=== PATIENT | female | born 1990 | race Caucasian/White ===

== ENCOUNTER 2019-05-25 19:56 | Emergency (ER) | payer SELFPAY ==
[2019-05-25 19:58] VITALS: BP 143/88; PULSE 84; RESP 16; TEMP 36.6; O2SAT 95; BMI 35.1
--- NOTE | 2019-05-25 20:11 | ED.VISSUMM ---
- ER Visit Summary Date of Service: 05/25/19 Chief Complaint: [Back and left leg pain] History of Present Illness: The patient is a 28 F [presents to the emergency department with complaint of pain that started in her low back about a week and a half ago. Patient and subsequently developed pain that radiated into her buttock and down the back of her left leg all the way down to the foot. Patient has intermittent numbness and tingling associated with it. Oftentimes it is difficult to find a position of comfort however she gets some relief with lying with some pillows between her legs and having the left hip abducted. Patient denies any falls or trauma. She denies any recent illness other than she is had all bit of a head cold and 4 days ago had a fever up to 102. She denies any urinary symptoms. She denies any IV drug use. She has no history of chronic back pain. Patient does have history of thyroid cancer and cervical cancer and has been in remission. She denies any weakness in the extremity. She denies any saddle anesthesia.] Physical Examination: [HEENT-PERRLA, EOMI. Cranial nerves II through XII grossly intact. TMs clear. Mucous membranes moist. No adenopathy. Cardiovascular-regular rate and rhythm without murmur or ectopy Lungs-clear to auscultation, chest wall stable without crepitus or subcu emphysema Abdomen-normoactive bowel sounds, soft, nontender, no rebound or rigidity, no peritoneal signs. Back exam-patient has mild discomfort over the left lumbar paraspinal musculature. No real tenderness in the midline of the thoracic or lumbar spine. Patient has negative straight leg raises bilaterally. Deep tendon reflexes are plus 2 out of 4 bilaterally at the patella and Achilles. Patient has normal L5 extension bilaterally. Patient has normal sensation to light touch. Extremities-intact ?4, normal range of motion, normal pulses, atraumatic] Test Results: [None indicated] Emergency Department Course and Treatment: [She was medicated with 1 [place] as well as Naprosyn and Flexeril.] Treatment Plan: [She will be given a perception for [place], Naprosyn, and Flexeril. Patient advised to follow-up with primary care physician convalescent sitter for no doc within the next 3 to 5 days. Patient understands if her symptoms do not improve or worsen may require further evaluation with possibly MRI.] Disposition: [Discharged home in stable condition.] Impression: [Lumbar radiculopathy/sciatica] This note was generated with [employer] dictation software. It may contain incorrect words, spelling, and punctuation that were not noted in review of the chart prior to signing ED Disposition - Plan for ED Patient: Referrals: Care Physician,No Primary [Primary Care Provider] -
--- NOTE | 2019-05-25 20:14 | ED.DEP ---
ED Disposition - Plan for ED Patient: Instructions: BACK PAIN w/ SCIATICA Prescriptions: cycloBENZAPRine HCl [Flexeril] 10 mg PO TID PRN #20 tab PRN Reason: Muscle Spasm Prescription Printed Naproxen [Naprosyn] 500 mg PO BID PRN #20 tab Prescription Printed Hydrocodone Bitart/Apap 5-325 [[place] 5MG-325MG] 1 tab PO Q4H PRN PRN 2 Days #20 tab PRN Reason: Pain Prescription Printed Referrals: Care Physician,No Primary [Primary Care Provider] - Isidro Caldwell MD [STAFF PHYSICIAN] - 3-5 Days
[2019-05-25] MEDS: Naproxen 500 MG Tablet PO (20:20)
[2019-05-25] MEDS: HYDROcodone Bitartrate/Apap 5/325 Tablet PO (20:20)
[2019-05-25] MEDS: cycloBENZAPRine HCl 10 MG Tablet PO (20:20)
[2019-05-25 20:34] VITALS: BP 129/75; PULSE 71; RESP 18; O2SAT 99
--- NOTE | 2019-05-25 20:35 | ED.RN ---
THIS NURSE REVIEWED D/C INSTRUCTIONS WITH PT. PT VERBALIZED UNDERSTANDING OF INSTRUCTIONS. PT DENIES FURTHER NEED OR QUESTIONS AT THIS TIME. PT AMBULATES FROM ROOM ON OWN WITHOUT ASSISTANCE FROM STAFF
== END 2019-05-25 20:38 | disposition home or self-care (01) ==
LOC: ED 20:19
PROVIDERS: Emergency Provider Emergency Medicine
DX: M54.16 Radiculopathy, lumbar region (principal); M54.30 Sciatica, unspecified side; Z85.41 Personal history of malignant neoplasm of cervix uteri; Z85.850 Personal history of malignant neoplasm of thyroid
CPT/HCPCS: 99282

== ENCOUNTER 2019-07-22 13:26 | Emergency (ER) | payer SELFPAY ==
[2019-07-22 13:27] VITALS: BP 114/88; PULSE 111; RESP 20; TEMP 36.6; O2SAT 100; BMI 32.8
--- NOTE | 2019-07-22 13:53 | ED.VIS.GEN ---
History of Present Illness Chief Complaint: Cough Informant: Patient Narrative: Patient presents with 4 to 5-day history of cough congestion fevers myalgias, the fevers have significantly improved, she still has upper airway congestion. She smoked 3 packs of cigarettes a day until a few days ago, she is down to 1-1/2 packs of cigarettes a day. She has no fevers in the past 2 days. She has upper airway congestion and rhinorrhea and she has a sore throat. Past Medical History - Allergies and Home Meds Allergies/Adverse Reactions: Allergies hydromorphone [From Dilaudid] Allergy (Verified 07/22/19 13:29) Hives latex Allergy (Verified 07/22/19 13:29) Hives ZEST Allergy (Uncoded 07/22/19 13:29) Hives Primary Care Physician: Care Physician,No Primary [Primary Care Provider] - Past Medical History: None Smoking Status: Current every day smoker Review of Systems General: Reports: Fever Eyes: Denies: Visual changes - bilaterally ENT: Reports: Bilateral ear pain Cardiovascular: Denies: Chest pain, Palpitations Respiratory: Reports: Cough. Denies: Sputum Gastrointestinal: Denies: Abdominal pain, Nausea Musculoskeletal: Reports: Myalgias Skin: Denies: Rash Neurological: Denies: Headache, Weakness Endocrine: Denies: Polyuria Hematologic: Denies: Easy bruising Allergy: Denies: Uticaria Physical Exam Vital Signs/Narrative: Vital Signs Temp Pulse Resp BP Pulse Ox 07/22/19 13:27 98 F 111 H 20 H 114/88 H 100 General: Well nourished, Well developed Eyes: Perrl, EOMI ENT: Moist mucous membranes, - - Upper airway congestion, rhinorrhea, she has bilateral TM erythema but no bulging. Neck: Supple Cardiovascular: Regular rhythm, No murmurs Respiratory: No distress, - - Speaking full sentences, she has mild and expiratory wheezing and quite a bit of bronchial breath sounds. Abdomen: Soft, Nontender Back: Nontender Extremities: No edema Skin: Normal color Neurological: Alert, Normal Strength, Normal Sensation Psychological: Normal affect Diagnostic/Tx/Re-eval - Medical Decision Making Patient likely has bronchitis, she does not meet criteria for antibiotic treatment, she may have had influenza or an upper respiratory infection however this is also improving and does not meet criteria for Tamiflu. She appears well is nontoxic we will give her an inhaler for home and NSAIDs as well as decongestants. If she worsens she needs to return. ED Disposition - Plan for ED Patient: Disposition: Home or Assisted Living Instructions: BRONCHITIS with Wheezing (Adult) Prescriptions: Guaifenesin [Mucinex] 1,200 mg PO BID #10 tab.er.12h Transmission Status: Pending to [id number] Naproxen [Naprosyn] 500 mg PO BID PRN #20 tab Transmission Status: Pending to [id number] Albuterol Sulfate [Proventil Hfa] 6.7 gm IH Q6H PRN PRN #1 [id number] PRN Reason: Wheezing Transmission Status: Pending to [id number] Referrals: Care Physician,No Primary [Primary Care Provider] - 3-5 Days
[2019-07-22 13:58] VITALS: PULSE 82; RESP 24; O2SAT 99
[2019-07-22] MEDS: Ipratropium/Albuterol Sulfate 3 ML AMPUL.NEB INHALATION (13:58)
[2019-07-22] MEDS: Ketorolac 30 MG/ML Syringe IM (14:00)
[2019-07-22 14:41] VITALS: PULSE 92; RESP 16; O2SAT 97
== END 2019-07-22 14:41 | disposition home or self-care (01) ==
PROVIDERS: Emergency Provider Emergency Medicine
DX: J40 Bronchitis, not specified as acute or chronic (principal); R06.2 Wheezing; F17.200 Nicotine dependence, unspecified, uncomplicated; Z88.5 Allergy status to narcotic agent; Z91.040 Latex allergy status
CPT/HCPCS: 94640; 96372; 99283

== ENCOUNTER 2019-10-21 13:39 | Emergency (ER) | payer SELFPAY ==
[2019-10-21 13:40] VITALS: BP 125/94; PULSE 72; RESP 18; O2SAT 95
[2019-10-21 13:41] VITALS: BP 125/94; PULSE 80; RESP 17; TEMP 37.1; O2SAT 98; BMI 32.8
--- NOTE | 2019-10-21 14:18 | ED.VISSUMM ---
- ER Visit Summary Date of Service: 10/21/19 Chief Complaint: Right upper eyelid pain History of Present Illness: The patient is a 29 F with no primary care physician. She wears glasses that she is gotten from [employer]. She does not wear contacts. She reports that she has pain to her right upper eyelid that began 3 days ago. Is gradually gotten worse. It is a sharp pain is 10 out of 10 at worst and 7-10 currently. Is worsened by blinking and touching it. Is relieved by warm compresses. She denies any pain to her eye itself. No foreign body sensation. No discharge or crusting. No photophobia. No change in her vision. She denies any possible injury. On review of systems patient does appear alert that she has had some congestion, but nothing unusual for her. She denies any other complaints. Physical Examination: Vitals: Stable. Afebrile. General: Well-nourished and well-developed. Head: Normocephalic atraumatic. Right eye: Moderate soft tissue swelling that is worst over the margin of her right upper eyelid in the middle third. This does extend both superiorly and laterally. There is no erythema. No localized stye. It is moderately tender to palpation. There is no involvement of the globe itself. There is no conjunctival injection. Extraocular motions are intact without pain. Neck: Supple, no lymphadenopathy. No JVD. Nontender. Cardiovascular: Regular rate and rhythm. No murmurs. Respiratory: No respiratory distress. Clear to auscultation bilaterally. Abdominal: Soft, nontender, nondistended, normal bowel sounds. No guarding, rebound, or peritoneal signs. Back: Nontender. Extremities: Nontender, no edema. Skin: Normal color, no rash. Neurologic: Alert and oriented ?3. Cranial nerves II through XII are intact. Normal strength and sensation. Psych: Normal affect. Emergency Department Course and Treatment: I had a prolonged discussion the patient that I suspect that this is actually a stye that has not organized into a single spot yet. She had bacitracin placed. An [facility] report was obtained which shows she is only had one prescription for opiates in the past year. She is treated with naproxen and [place]. Treatment Plan: Patient will be discharged with instructions to do warm compresses to her eye 4 times a day. Stop wearing eye make-up. Use bacitracin ointment 4 times a day. She is given us prescription for 10 [place]. Instructed to follow-up with Dr. Yazmin Jeff in 1 week if not improving. Return to the emergency department for any worsening symptoms. Disposition: To home in improved and stable condition. Impression: 1. Hordeolum right upper eyelid. This note was generated with [employer] dictation software. It may contain incorrect words, spelling, and punctuation that were not noted in review of the chart prior to signing ED Disposition - Plan for ED Patient: Instructions: ED Hordeolum Prescriptions: Naproxen [Naprosyn] 500 mg PO BID #14 tablet Hydrocodone Bitart/Apap 5-325 [[place] 5MG-325MG] 1 tablet PO Q4H PRN PRN 2 Days #10 tablet PRN Reason: Pain Referrals: Megha Jeff MD [STAFF PHYSICIAN] - 1 Week if not improving
[2019-10-21] MEDS: HYDROcodone Bitartrate/Apap 5/325 Tablet PO (14:31)
[2019-10-21] MEDS: Naproxen 250 MG Tablet 500 MG PO (14:31)
== END 2019-10-21 14:51 | disposition home or self-care (01) ==
LOC: ED 14:42
PROVIDERS: Emergency Provider Emergency Medicine
DX: H00.011 Hordeolum externum right upper eyelid (principal); E03.9 Hypothyroidism, unspecified; F17.210 Nicotine dependence, cigarettes, uncomplicated
CPT/HCPCS: 99283

== ENCOUNTER 2019-11-22 17:06 | Emergency (ER) | payer MEDICAID, SELFPAY ==
[2019-11-22 17:06] VITALS: BP 151/96; PULSE 91; RESP 18; TEMP 36.6; O2SAT 99; BMI 32.5
[2019-11-22] MEDS: Lidocaine/Epi/Tetracaine 50 ML 1 APPLIC TOPICAL (17:28)
--- NOTE | 2019-11-22 18:04 | ED.VIS.GEN ---
History of Present Illness Chief Complaint: Abscess Informant: Patient Onset: Weeks - 1 week Context: Gradual Onset Current Severity: Mild Maximum Severity: Moderate Narrative: Patient presents secondary to boil on her abdomen. She states she first noted a week ago. She did open and get some drainage out of it. For the past week she is had increasing pain. She is not been able to get any further drainage. She denies fever or chills. - Past Medical History (1) Hypothyroid Status: Chronic (2) Asthma Status: Chronic (3) Bipolar disorder Status: Chronic Past Medical History - Allergies and Home Meds Allergies/Adverse Reactions: Allergies hydromorphone [From Dilaudid] Allergy (Verified 11/22/19 17:08) Hives latex Allergy (Verified 11/22/19 17:08) Hives ZEST Allergy (Uncoded 11/22/19 17:08) Hives Primary Care Physician: Care Physician,No Primary [Primary Care Provider] - Prior records reviewed: Yes Lives: Spouse/ Significant Other Smoking Status: Current every day smoker Review of Systems Eyes: Denies: Visual changes - bilaterally ENT: Denies: Bilateral ear pain Cardiovascular: Denies: Chest pain Respiratory: Denies: Dyspnea, Cough Gastrointestinal: Reports: Abdominal pain Musculoskeletal: Denies: Extremity Pain Skin: Reports: Abscess Neurological: Denies: Headache Hematologic: Denies: Easy bruising, Easy bleeding Allergy: Denies: Uticaria Physical Exam Vital Signs/Narrative: Vital Signs Temp Pulse Resp BP Pulse Ox 11/22/19 17:06 97.8 F 91 18 151/96 H 99 Inital Vital Signs reviewed: Yes General: Well nourished, Well developed Head: Normocephalic ENT: Moist mucous membranes Neck: Supple Cardiovascular: Regular rate, Regular rhythm Respiratory: No distress, CTA bilaterally Abdomen: Soft, Nontender Skin: - - 1 cm diameter abscess to the right anterior abdominal wall. No surrounding cellulitis. Neurological: Alert, Oriented x3 Psychological: Normal affect Diagnostic/Tx/Re-eval - Medical Decision Making Let was applied to the wound. Following this 1/2 cc 1% lidocaine was infused. Stab incision is made with #11 blade. Wound is opened. Minimal drainage noted. Wound is dressed and wound care is discussed. I do not feel she needs oral antibiotics at this time. ED Disposition - Plan for ED Patient: Disposition: Home or Assisted Living Diagnosis: Cutaneous abscess Instructions: ED Abscess Incision And Drainage Referrals: Rodrigo Betancourt DO [STAFF PHYSICIAN] - As Needed
== END 2019-11-22 18:11 | disposition home or self-care (01) ==
PROVIDERS: Emergency Provider Emergency Medicine
DX: L02.211 Cutaneous abscess of abdominal wall (principal); E03.9 Hypothyroidism, unspecified; F31.9 Bipolar disorder, unspecified; J45.909 Unspecified asthma, uncomplicated; Z88.5 Allergy status to narcotic agent; Z91.040 Latex allergy status; F17.200 Nicotine dependence, unspecified, uncomplicated
CPT/HCPCS: 10060; 99282

== ENCOUNTER → 2020-04-07 09:15 | Outpatient (CLI) | payer MEDICAID, SELFPAY ==
[2020-04-07 10:10] LABS: Absolute Lymphocyte Count 3.17 X10^3/uL (0.83-4.51); Absolute Neutrophil Count 4.4 X10^3/uL (2.0-7.7); Basophil# 0.06 X10^3/uL; Basophil% 0.7 % (0-1); Eosinophils% 3.5 % (0-5); Hematocrit 44.9 % (37-47); Hemoglobin 14.6 g/dL (12.0-15.0); Lymphocyte # 3.17 X10^3/ul (4.0); Lymphocyte % 36.8 % (19-41); Mean Corp Hgb Conc 32.5 g/dL (32-36); Mean Corpuscular Hgb 31.7 pg (27.0-32.0); Mean Corpuscular Volume 97.6 fL (81-99); Mean Platelet Vol. 9.4 fl (6.2-12.0); Monocyte% 8.1 % (0-10); NRBC Flagged by Analyzer 0 % (0-5); Neutrophil # 4.35 X10^3/uL (2.7-7.7); Neutrophil % 50.4 % (47-70); Platelet Count 327 K/mm3 (150-450); RBC Distribution Width SD 46.4 fl (35.1-43.9); White Blood Count 8.6 K/mm3 (4.4-11.0)
[2020-04-07 10:45] LABS: Vitamin D,25 Hydroxy 18.2 ng/mL
[2020-04-07 12:11] LABS: ALB/GLOB Ratio 0.9 RATIO (0.9-2.4); AST(SGOT) 34 U/L (15-37); Alanine Aminotransfer ALT/SGPT 20 U/L (13-56); Albumin, Serum 3.8 g/dL (3.2-5.0); Alkaline Phosphatase 62 U/L (45-117); Anion Gap 6 (5-15); BUN 11 mg/dL (7-18); BUN/Creat Ratio 10.5 RATIO (10-20); Calcium,Total 8.8 mg/dL (8.5-10.1); Chloride 104 mmol/L (98-107); Cholesterol 188 mg/dL (200); Creatinine, Serum 1.05 mg/dL (0.55-1.02); EST Glomerular Filtration Rate 65 mL/min (>60); Est Glom Filt Rate - Afr Amer 78 mL/min (>60); Free T3 0.7 pg/mL (2.18-3.98); Globulin 4.1 g/dL (2.2-4.2); Glucose 76 mg/dL (74-106); High Density Lipoprotein 51 mg/dL; Potassium 3.7 mmol/L (3.5-5.1); Protein, Total 7.9 g/dL (6.4-8.2); Sodium Level 139 mmol/L (136-145); T4 Free Direct 0.35 ng/dL (0.76-1.46); Triglycerides 102 mg/dL; Very Low Density Lipoprotein 20 mg/dL (5-40)
== END ==
DX: E03.9 Hypothyroidism, unspecified (principal); F41.9 Anxiety disorder, unspecified
CPT/HCPCS: 36415; 80053; 80061; 82306; 84439; 84443; 84481; 85025

== ENCOUNTER 2022-03-23 04:39 | Emergency (ER) | payer MEDICAID, SELFPAY ==
[2022-03-23 04:39] VITALS: BP 156/94; PULSE 68; RESP 16; TEMP 36.6; O2SAT 100; BMI 32.8
--- NOTE | 2022-03-23 04:46 | EDS_ITS ---
HPI History of Present Illness Chief Complaint: Dental Informant: patient Onset/Context/Timing Onset: Today (sev hrs) Context: - (awoke w/ pain) Timing: Continuous Quality: throbbing Location: left mandib molar Current Severity: Moderate Maximum Severity: Moderate Worsened by: nothing in particular Relieved by: NSAIDs (temporarily) Associated Symptoms Assocated Symptom - Dental: Negative for fever, jaw swelling or face swelling Narrative Narrative: Patient has a history of a diseased tooth that started bothering her within the last couple hours, woke her up from sleep. No swelling, bleeding, discharge, fevers or chills. [facility] Medical History Depression HTN (hypertension) Hypothyroid Home Medications levothyroxine 200 mcg tablet 200 mcg PO DAILY 11/22/19 [History Last Taken Unknown] amoxicillin 500 mg tablet 500 mg PO TID #30 tabs 03/23/22 [Rx Last Taken Unknown] buspirone 10 mg tablet 10 mg BID 03/23/22 [History Last Taken Unknown] escitalopram oxalate 20 mg tablet 20 mg DAILY 03/23/22 [History Last Taken Unknown] hydroxyzine pamoate 25 mg capsule 25 mg DAILY PRN Anxiety 03/23/22 [History Last Taken Unknown] lisinopril 10 mg tablet 10 mg DAILY 03/23/22 [History Last Taken Unknown] Allergy/AdvReac Type Severity Reaction Status Date / Time hydromorphone [From Dilaudid] Allergy Hives Verified 03/23/22 04:43 latex Allergy Hives Verified 03/23/22 04:43 ZEST Allergy Hives Uncoded 03/23/22 04:43 Social History Smoking Status: Current every day smoker tobacco type: cigarettes ROS ROS ED Constitutional Constitutional ED: Denies chills or fever(s) Eyes Eyes: Denies change in vision or double vision ENT ENT ED: Reports dental pain; Denies sinus pain or throat swelling Cardiovascular Cardiovascular: Denies chest pain or palpitations Respiratory/Chest Respiratory/Chest: Denies cough or dyspnea Integumentary Denies abscess or rash Neurologic Neurologic: Denies headache(s), paresthesias or weakness EXAM Physical Exam Const Vital Signs: 03/23/22 04:39 Temperature 97.8 F Temperature Source Temporal Pulse Rate 68 Respiratory Rate 16 Blood Pressure 156/94 H Blood Pressure Mean 114 Pulse Ox 100 Oxygen Delivery Method Room Air Positive well nourished and well developed General Appearance ED: well developed and NAD HEENT HEENT Narrative: Severely carried tooth #18, down to the gumline. Some gingival swelling around it without bleeding, obvious abscess, or visible external asymmetry of the face. No palpable lymphadenopathy. No trismus. No sublingual swelling or tongue elevation. Face and Sinus: sinuses nontender Throat: posterior oropharynx normal Eyes PERRL and EOMs intact bilaterally Neck no lymphadenopathy and supple Resp normal respiratory effort Neuro oriented x3 and CN's II-XII intact bilaterally Sensorium / Orientation: alert Gait (Neuro): normal gait Psych mental status grossly normal and thought process normal Skin no rashes or lesions noted and no wounds MDM MDM MDM Narrative Medical decision making narrative: Treating this patient with antibiotics is appropriate and having her follow-up closely with a dentist. She was given a resource list. She has coverage she states. She is okay using [id number] analgesics. All questions answered prior to discharge. Discharge Plan Triage Chief Complaint: Dental ED Provider: Luiz Wilde Dx/Rx/DC Orders Clinical Impression: Infected dental caries Instructions: ED Dental Pain Prescriptions: New amoxicillin 500 MG tablet 500 mg PO TID Qty: 30 0RF No Action levothyroxine 200 MCG tablet 200 mcg PO DAILY buspirone 10 mg tablet 10 mg BID lisinopril 10 mg tablet 10 mg DAILY Label Comments: take 1 tablet by mouth once daily hydroxyzine pamoate 25 mg capsule 25 mg DAILY PRN (Reason: Anxiety) escitalopram oxalate 20 mg tablet 20 mg DAILY Label Comments: take 1/2 tablet by mouth once daily for 7 days then take 1 FULL tablet once daily THEREAFTER [facility] - As soon as possible (for dental treatment, or may try dentist of your choice; see attached dental resource list if needed) Disposition Disposition: Home, Self Care
[2022-03-23] MEDS: Amoxicillin 250 MG Capsule PO (04:55)
[2022-03-23] MEDS: AMOXICILLIN 500 MG CAPSULE PO (04:55)
[2022-03-23 05:00] VITALS: BP 156/94; PULSE 68; RESP 18
== END 2022-03-23 05:00 | disposition home or self-care (01) ==
LOC: ED 04:53
PROVIDERS: Emergency Provider Emergency Medicine; Visit Provider Emergency Medicine
DX: K02.9 Dental caries, unspecified (principal); I10 Essential (primary) hypertension; F17.210 Nicotine dependence, cigarettes, uncomplicated; E03.9 Hypothyroidism, unspecified; F32.A Depression, unspecified
CPT/HCPCS: 99283

== ENCOUNTER 2022-05-10 09:04 | Emergency (ER) | payer MEDICAID, SELFPAY ==
[2022-05-10 09:06] VITALS: BP 131/95; PULSE 89; RESP 14; TEMP 36.2; O2SAT 99; BMI 33.1
[2022-05-10 09:08] VITALS: BP 131/95; PULSE 89; RESP 14; TEMP 36.2; O2SAT 99
--- NOTE | 2022-05-10 09:50 | EDS_ITS ---
HPI History of Present Illness Chief Complaint: Dental Narrative Narrative: 31-year-old female with left sided mandibular swelling. She states she has poor dentition. She has had problems with this area of her teeth in the past. She states that she has follow-up in June with a dentist. She states this is the closest appointment she could make. She states that last night she had a mild tooth ache and woke up this morning with the facial swelling which has not been this severe in a while. No trouble swallowing or breathing. No fever or chills. No new trauma to the teeth. [facility] Medical History Depression HTN (hypertension) Hypothyroid Home Medications levothyroxine 200 mcg tablet 200 mcg PO DAILY 11/22/19 [History Last Taken Unknown] lisinopril 10 mg tablet 10 mg DAILY 03/23/22 [History Last Taken Unknown] amoxicillin 875 mg-potassium clavulanate 125 mg tablet 1 tab PO BID #20 tabs 05/10/22 [Rx Last Taken Unknown] naproxen 500 mg tablet (Naprosyn) 500 mg PO BID PRN pain #20 tabs 05/10/22 [Rx Last Taken Unknown] oxycodone-acetaminophen 5 mg-325 mg tablet (Percocet) 1 tab PO Q6H PRN pain 3 days #12 tabs 05/10/22 [Rx Last Taken Unknown] Allergy/AdvReac Type Severity Reaction Status Date / Time hydromorphone [From Dilaudid] Allergy Hives Verified 05/10/22 09:05 latex Allergy Hives Verified 05/10/22 09:05 ZEST Allergy Hives Uncoded 05/10/22 09:05 Social History Smoking Status: Current every day smoker tobacco type: cigarettes ROS ROS ED Constitutional Constitutional ED: Denies chills, fever(s) or sweats Eyes Eyes: Denies blurry vision or change in vision ENT ENT ED: Reports other Details: Left mandibular swelling ; Denies ear pain Cardiovascular Cardiovascular: Denies chest pain, palpitations or racing heartbeat Respiratory/Chest Respiratory/Chest: Denies cough, dyspnea or sputum Gastrointestinal Gastrointestinal: Denies abdominal pain, constipation, diarrhea, nausea or vomiting Genitourinary Genitourinary ED: Denies dysuria, hematuria or urinary frequency Musculoskeletal Musculoskeletal: Denies arthralgias, myalgias or neck pain Integumentary Denies abscess, Abrasions or rash Neurologic Neurologic: Denies headache(s), paresthesias or weakness Psychiatric Psychiatric: Denies anxiety, depression, suicidal ideation or suicidal thoughts Endocrine Endocrinology: Denies polydipsia or polyuria EXAM Physical Exam Const Vital Signs: 05/10/22 09:06 05/10/22 09:08 Temperature 97.1 F L 97.1 F L Temperature Source Temporal Temporal Pulse Rate 89 89 Respiratory Rate 14 14 Blood Pressure 131/95 H 131/95 H Blood Pressure Mean 107 107 Pulse Ox 99 99 Oxygen Delivery Method Room Air Room Air Positive well nourished General Appearance ED: NAD HEENT HEENT Narrative: Left-sided mandibular swelling. No fluctuance noted. There is gingival erythema along the region inside of the mouth. Dentition is poor. There are multiple dental caries. No evidence of trauma. No trismus. No sublingual edema. Tongue is not swollen. Oropharynx is patent without stridor. No submandibular fullness. Teeth and Gingiva: gingiva abnormal Positive for gingival tenderness Eyes PERRL and EOMs intact bilaterally Neck no lymphadenopathy Chest Wall inspection of chest normal Resp normal respiratory effort and no retractions Cardio regular rate and regular rhythm GI normal to inspection, nondistended, normoactive bowel sounds Extremity normal to inspection Neuro oriented x3 and CN's II-XII intact bilaterally Motor Exam: strength 5/5 throughout Psych mental status grossly normal Skin no rashes or lesions noted MDM MDM MDM Narrative Medical decision making narrative: Patient presenting with dental abscess which is worsened overnight. She states the last time she was on antibiotics was about a month and a half ago and she states that she was amoxicillin. Patient states that she has follow-up in June but misses a close appointment she can get. She states the only resource that has not returned her phone call is [facility]. She is given Percocet for pain and Augmentin with the first dose of Augmentin in the ER. Since she is driving I did not give her any oxycodone here. She will fill this prescription and take it as needed. She is also given prescription for Naprosyn. Return precautions discussed. Impression: 1. Dental abscess Lab Data Attestation: I reviewed the patient's lab results. Discharge Plan Triage Chief Complaint: Dental ED Provider: Jean Paul Erwin Dx/Rx/DC Orders Instructions: Dental Abscess Prescriptions: New oxycodone-acetaminophen [Percocet] 5-325 mg tablet 1 tab PO Q6H PRN (Reason: pain) 3 Days Qty: 12 0RF naproxen [Naprosyn] 500 mg tablet 500 mg PO BID PRN (Reason: pain) Qty: 20 0RF amoxicillin-pot clavulanate 875-125 mg tablet 1 tab PO BID Qty: 20 0RF No Action levothyroxine 200 MCG tablet 200 mcg PO DAILY lisinopril 10 mg tablet 10 mg DAILY Label Comments: take 1 tablet by mouth once daily Primary Care Provider: Care Physician,No Primary Referrals: [facility] [Outside] - As soon as possible Care Physician,No Primary [Primary Care Provider] - Disposition Disposition: Home, Self Care
[2022-05-10 09:58] VITALS: BP 138/67; PULSE 71; RESP 16; O2SAT 99
[2022-05-10] MEDS: Amox/Clavulanate 875 MG Tablet PO (09:58)
== END 2022-05-10 09:59 | disposition home or self-care (01) ==
PROVIDERS: Emergency Provider Student in an Organized Health Care Education/Training Program; Visit Provider Student in an Organized Health Care Education/Training Program
DX: K04.7 Periapical abscess without sinus (principal); I10 Essential (primary) hypertension; F17.210 Nicotine dependence, cigarettes, uncomplicated; E03.9 Hypothyroidism, unspecified; F32.9 Major depressive disorder, single episode, unspecified
CPT/HCPCS: 99283

== ENCOUNTER 2022-06-07 14:54 | Emergency (ER) | payer MEDICAID, SELFPAY ==
[2022-06-07 14:55] VITALS: BP 128/105; PULSE 96; RESP 18; TEMP 36.2; O2SAT 100; BMI 31.8
--- NOTE | 2022-06-07 15:40 | EKG12_ITS ---
Test Reason : Blood Pressure : / mmHG Vent. Rate : 066 BPM Atrial Rate : 066 BPM P-R Int : 136 ms QRS Dur : 076 ms QT Int : 420 ms P-R-T Axes : 053 035 092 degrees QTc Int : 440 ms Normal sinus rhythm with sinus arrhythmia Low voltage QRS Nonspecific T wave abnormality Abnormal ECG Confirmed by BHAVIK BARLOW, ASHLEY ([id number]), assistant editor SANDRO MOURA ([id number]) on 06/09/2022 10:46:10 AM Referred By: Confirmed By:CHAU GUTIERRES MD
--- NOTE | 2022-06-07 15:42 | EDS_ITS ---
HPI History of Present Illness Chief Complaint: Shortness of Breath Detail of Chief Complaint: Shortness of breath, chest pressure Informant: patient Onset/Context/Timing Onset: Today Current Severity: Mild Maximum Severity: Moderate Narrative Narrative: Patient presents secondary to increased shortness of breath and chest pressure with recent COVID diagnosis. She states she became ill on Sunday evening, June 03. She was seen at urgent care the following day and her COVID test returned positive. She continued with fever and body aches for the next 2 days. She states she actually woke up this morning feeling somewhat improved but at 230 this afternoon noted chest pressure and increased shortness of breath with any exertion. She has a history of asthma but does not feel that she is wheezing. She states her asthma has been very well controlled over the past 12 years. [facility] Medical History Anxiety Asthma Depression HTN (hypertension) Hypothyroid Home Medications levothyroxine 200 mcg tablet 200 mcg PO DAILY 11/22/19 [History Last Taken Unknown] lisinopril 10 mg tablet 10 mg DAILY 03/23/22 [History Last Taken Unknown] buspirone 10 mg tablet 10 mg PO DAILY 06/07/22 [History Last Taken Unknown] ferrous sulfate 325 mg (65 mg iron) tablet (FeroSul) 325 mg PO DAILY 06/07/22 [History Last Taken Unknown] hydroxyzine pamoate 25 mg capsule 25 mg PO QHS PRN Anxiety 06/07/22 [History Last Taken Unknown] Allergy/AdvReac Type Severity Reaction Status Date / Time hydromorphone [From Dilaudid] Allergy Hives Verified 06/07/22 14:59 latex Allergy Hives Verified 06/07/22 14:59 ZEST Allergy Hives Uncoded 05/10/22 09:05 Social History Smoking Status: Current every day smoker tobacco type: cigarettes ROS ROS ED Constitutional Constitutional ED: Reports chills and fever(s) Eyes Eyes: Denies change in vision or discharge from eye(s) ENT ENT ED: Denies discharge from eye(s), rhinorrhea or sore throat Cardiovascular Cardiovascular: Reports chest pain; Denies palpitations Respiratory/Chest Respiratory/Chest: Reports cough and dyspnea Gastrointestinal Gastrointestinal: Denies abdominal pain, diarrhea, nausea or vomiting Genitourinary Genitourinary ED: Denies dysuria Musculoskeletal Musculoskeletal: Denies back pain or extremity pain Integumentary Denies Abrasions or rash Neurologic Neurologic: Denies headache(s) or weakness Psychiatric Psychiatric: Denies anxiety or depression Allergic/Immunologic Allergic/Immunologic ED: Denies lip swelling or urticaria EXAM Physical Exam Const Vital Signs: 06/07/22 14:55 06/07/22 17:23 Temperature 97.2 F L Temperature Source Temporal Pulse Rate 96 83 Respiratory Rate 18 Blood Pressure 128/105 H 123/81 H Blood Pressure Mean 112 95 Pulse Ox 100 100 Oxygen Delivery Method Room Air Room Air Positive well nourished and well developed General Appearance ED: well developed HEENT Reports normocephalic and head/scalp atraumatic Eyes PERRL and EOMs intact bilaterally Neck supple Chest Wall inspection of chest normal and palpation of chest normal Resp normal respiratory effort and clear to auscultation bilaterally Cardio regular rate and regular rhythm GI normal to inspection, nondistended, normoactive bowel sounds Palpation: soft Extremity normal to inspection Neuro oriented x3 and no sensory deficits noted Sensorium / Orientation: alert Motor Exam: strength 5/5 throughout Psych mental status grossly normal Skin no rashes or lesions noted MDM MDM MDM Narrative Medical decision making narrative: Patient placed on cardiac monitor technician. EKG, chest x-ray, lab work obtained. Lab Data Attestation: I reviewed the patient's lab results. Labs: Laboratory Results - last 24 hr 06/07/22 06/07/22 06/07/22 15:45 15:45 15:45 WBC 4.5 RBC 4.12 L Hgb 12.4 Hct 36.8 L MCV 89.3 MCH 30.1 MCHC 33.7 RDW Std Deviation 44.7 H RDW Coeff of Acacia 13.6 Plt Count 261 MPV 9.4 Immature Gran % (Auto) 0.200 Neut % (Auto) 44.7 L Lymph % (Auto) 38.1 Creek % (Auto) 11.3 H Eos % (Auto) 5.5 H Baso % (Auto) 0.2 Absolute Neuts (auto) 2.0 Absolute Lymphs (auto) 1.72 Nucleated RBC % 0 D-Dimer Quant (PE/DVT) 0.72 H* Sodium 138 Potassium 3.5 Chloride 109 H Carbon Dioxide 24.0 Anion Gap 5 BUN 10 Creatinine 0.90 Estim Creat Clear Calc 70.32 Est GFR (MDRD) Af Amer 92 Est GFR (MDRD) Non-Af 76 BUN/Creatinine Ratio 11.1 Glucose 84 Calcium 8.8 Troponin I High Sens 4 Serum , Qual 06/07/22 15:45 WBC RBC Hgb Hct MCV MCH MCHC RDW Std Deviation RDW Coeff of Acacia Plt Count MPV Immature Gran % (Auto) Neut % (Auto) Lymph % (Auto) Creek % (Auto) Eos % (Auto) Baso % (Auto) Absolute Neuts (auto) Absolute Lymphs (auto) Nucleated RBC % D-Dimer Quant (PE/DVT) Sodium Potassium Chloride Carbon Dioxide Anion Gap BUN Creatinine Estim Creat Clear Calc Est GFR (MDRD) Af Amer Est GFR (MDRD) Non-Af BUN/Creatinine Ratio Glucose Calcium Troponin I High Sens Serum , Qual NEGATIVE Radiography Chest X-Ray - ED: 1 View, Read by ED Physician, Normal, Heart, Lungs and Mediastinum Diagnostic Testing: Clinical Impression(s) from Imaging Studies Chest X-Ray 06/07/22 15:50 IMPRESSION: No radiographic evidence of acute cardiopulmonary disease. Electronically Signed: Kam Adler MD at 16:18 EST , Chest CTA 06/07/22 16:26 IMPRESSION: Normal CTA chest examination, without a demonstrated pulmonary embolism or arterial dissection. No acute pulmonary findings. Electronically Signed: Kam Adler MD at 17:21 EST , EKG Initial EKG: Attestation: I personally reviewed and interpreted this EKG as follows: Interpretation: Sinus Rhythm (Sinus at 66. Patient has T wave inversion over the anterior lateral leads, similar when compared to prior study from 2016.) Treatment and Re-Evaluation Narrative: CBC and chemistry studies unremarkable. Troponin is normal at 4. D-dimer is slightly elevated at 0.72. Chest x-ray per my interpretation is normal. Radiology interpretation is reviewed. Given the patient's elevated D-dimer she is sent for CTA of the chest. This returns with no evidence of PE or dissection. No evidence of infiltrate. Test results are discussed with the patient and she is reassured. She will continue supportive care at home. Return instructions given. Discharge Plan Triage Chief Complaint: Shortness of Breath ED Provider: Jill Fong Dx/Rx/DC Orders Clinical Impression: COVID-19, Chest pain, non-cardiac Instructions: Coronavirus Disease 2019 (COVID-19): Overview, Coronavirus Disease 2019 (COVID-19): Caring for Yourself or Others, ED Chest Pain, Noncardiac Prescriptions: No Action levothyroxine 200 MCG tablet 200 mcg PO DAILY lisinopril 10 mg tablet 10 mg DAILY Label Comments: take 1 tablet by mouth once daily ferrous sulfate [FeroSul] 325 mg (65 mg iron) tablet 325 mg PO DAILY Label Comments: take 1 tablet by mouth every other day buspirone 10 mg tablet 10 mg PO DAILY Label Comments: take 1 tablet by mouth IN THE MORNING and at bedtime hydroxyzine pamoate 25 mg capsule 25 mg PO QHS PRN (Reason: Anxiety) Label Comments: take 1 capsule by mouth nightly if needed for anxiety Primary Care Provider: Care Physician,No Primary Referrals: Rodrigo Betancourt DO [Med Staff - Adoption Social Worker] - As Needed Care Physician,No Primary [Primary Care Provider] - Disposition Disposition: Home, Self Care
--- NOTE | 2022-06-07 15:50 | RAD_ITS ---
INDICATION: sob EXAMINATION/TECHNIQUE: X-RAY - portable upright AP chest x-ray COMPARISON: 10/03/2015 FINDINGS: LINES/DEVICES: None. LUNGS: No consolidation, edema or effusion. No pneumothorax. MEDIASTINUM AND CARDIOVASCULAR STRUCTURES: Cardiac silhouette not enlarged. Central airways and mediastinal contour are unremarkable. BONES AND SOFT TISSUES: Unremarkable. RAD/Chest 1 View (Portable) IMPRESSION: No radiographic evidence of acute cardiopulmonary disease. Electronically Signed: Kam Adler MD at 16:18 EST ,
[2022-06-07] MEDS: 0.9% Normal Saline 1,000 ML 150 ML IV (15:53)
[2022-06-07 16:06] LABS: Absolute Lymphocyte Count 1.72 X10^3/uL (0.83-4.51); Basophil# 0.01 X10^3/uL; Basophil% 0.2 % (0-1); Eosinophil# 0.25 X10^3/uL; Eosinophils% 5.5 % (0-5); Hematocrit 36.8 % (37-47); Hemoglobin 12.4 g/dL (12.0-15.0); Lymphocyte # 1.72 X10^3/ul (0.83-4.51); Lymphocyte % 38.1 % (19-41); Mean Corp Hgb Conc 33.7 g/dL (32-36); Mean Corpuscular Hgb 30.1 pg (27.0-32.0); Mean Corpuscular Volume 89.3 fL (81-99); Mean Platelet Vol. 9.4 fl (6.2-12.0); Monocyte# 0.51 X10^3/uL; Monocyte% 11.3 % (0-10); NRBC Flagged by Analyzer 0 % (0-5); Neutrophil # 2.01 X10^3/uL (2.7-7.7); Neutrophil % 44.7 % (47-70); Platelet Count 261 K/mm3 (150-450); RBC Distribution Width CV 13.6 % (11.6-14.6); RBC Distribution Width SD 44.7 fl (35.1-43.9); Red Blood Count 4.12 M/mm3 (4.2-5.4); White Blood Count 4.5 K/mm3 (4.4-11.0)
[2022-06-07 16:09] LABS: Anion Gap 5 (5-15); BUN 10 mg/dL (7-18); BUN/Creat Ratio 11.1 RATIO (10-20); Calcium,Total 8.8 mg/dL (8.5-10.1); Chloride 109 mmol/L (98-107); EST Glomerular Filtration Rate 76 mL/min (>60); Est Glom Filt Rate - Afr Amer 92 mL/min (>60); Estimated Creatinine Clearance 70.32 ml/min; Glucose 84 mg/dL (74-106); Potassium 3.5 mmol/L (3.5-5.1); Sodium Level 138 mmol/L (136-145); Troponin-I HS 4 pg/mL (3.0-54.0)
[2022-06-07 16:20] LABS: D-Dimer Quantitative (DVT/PE) 0.72 FEU/ug/m (0.27-0.49)
--- NOTE | 2022-06-07 16:26 | CT_ITS ---
STUDY: CTA CHEST REASON FOR EXAM: Female, 31 years old. covid, dyspnea, elevated d-dimer RADIATION DOSAGE (If Supplied By Facility): CTDIvol = ( 10.40 ) mGy, DLP = ( 398.72 ) mGycm TECHNIQUE: The examination was performed with the intravenous administration of 100mL Isovue-370. Post-processing of the angiographic images was performed, with multiplanar reformation and 3D reconstruction. Individualized dose optimization techniques were used for this CT. COMPARISON: None. FINDINGS: Normal enhancement of the main pulmonary artery and right and left pulmonary arteries. Normal enhancement of the bilateral peripheral pulmonary arteries. There is no demonstrated pulmonary embolism. Normal thoracic aorta and visualized great vessels. There is no demonstrated aortic dissection. Normal heart and pericardium. Normal mediastinum. Normal hilar regions. Normal visualized trachea and bronchi. Mild basilar dependent changes. No pleural effusions. Normal chest wall structures. No acute or aggressive osseous abnormality. No acute findings in the upper abdomen. CT/CTA Chest W/WO Contrast IMPRESSION: Normal CTA chest examination, without a demonstrated pulmonary embolism or arterial dissection. No acute pulmonary findings. Electronically Signed: Kam Adler MD at 17:21 EST ,
[2022-06-07 16:37] LABS: Internal QC Validated? YES +Cl - CLEAR BKGD; Pregnancy, Serum, hCG Quali. NEGATIVE Negative
[2022-06-07 17:23] VITALS: BP 123/81; PULSE 83; O2SAT 100
[2022-06-07 17:47] VITALS: BP 92/68; PULSE 55; RESP 16; O2SAT 100
== END 2022-06-07 17:48 | disposition home or self-care (01) ==
PROVIDERS: Emergency Provider Emergency Medicine; Visit Provider Emergency Medicine
DX: U07.1 COVID-19 (principal); R07.89 Other chest pain; F17.210 Nicotine dependence, cigarettes, uncomplicated; I10 Essential (primary) hypertension; E03.9 Hypothyroidism, unspecified; F41.9 Anxiety disorder, unspecified; F32.A Depression, unspecified; Z79.899 Other long term (current) drug therapy
CPT/HCPCS: 71045; 71275; 80048; 84484; 84703; 85025; 85379; 93005; 96360; 96361; 99283; J7030; Q9967

== ENCOUNTER → 2022-09-18 | Outpatient (CLI) | payer MEDICAID, SELFPAY ==
[2022-09-18 09:25] LABS: Hematocrit 35.9 % (37-47); Hemoglobin 11.5 g/dL (12.0-15.0); Mean Corpuscular Hgb 29.8 pg (27.0-32.0); Mean Platelet Vol. 9.7 fl (6.2-12.0); Platelet Count 344 K/mm3 (150-450); RBC Distribution Width CV 15.9 % (11.6-14.6); RBC Distribution Width SD 54.4 fl (35.1-43.9); Red Blood Count 3.86 M/mm3 (4.2-5.4); White Blood Count 7.2 K/mm3 (4.4-11.0)
[2022-09-18 10:54] LABS: ALB/GLOB Ratio 0.8 RATIO (0.9-2.4); AST(SGOT) 98 U/L (15-37); Alanine Aminotransfer ALT/SGPT 88 U/L (13-56); Albumin, Serum 3.7 g/dL (3.2-5.0); Alkaline Phosphatase 51 U/L (45-117); Anion Gap 4 (5-15); BUN 10 mg/dL (7-18); BUN/Creat Ratio 7.5 RATIO (10-20); Calcium,Total 8.6 mg/dL (8.5-10.1); Chloride 104 mmol/L (98-107); Creatinine, Serum 1.33 mg/dL (0.55-1.02); EST Glomerular Filtration Rate 49 mL/min (>60); Est Glom Filt Rate - Afr Amer 59 mL/min (>60); Globulin 4.5 g/dL (2.2-4.2); Glucose 89 mg/dL (74-106); Iron 22 ug/dL (50-170); Iron Binding Capacity,Total 348 ug/dL (250-450); PERCENT IRON SATURATION 6.3 % (15.0-55.0); Potassium 3.9 mmol/L (3.5-5.1); Protein, Total 8.2 g/dL (6.4-8.2); Sodium Level 137 mmol/L (136-145); T4 Free Direct 0.21 ng/dL (0.76-1.46)
== END | disposition home or self-care (01) ==
LOC: LAB 08:56
PROVIDERS: Nurse Practitioner Family
DX: I10 Essential (primary) hypertension (principal); E03.9 Hypothyroidism, unspecified; E55.9 Vitamin D deficiency, unspecified; D50.9 Iron deficiency anemia, unspecified
CPT/HCPCS: 36415; 80053; 82306; 83540; 83550; 84439; 84443; 85027

== ENCOUNTER → 2022-09-27 | Outpatient (CLI) | payer MEDICAID, SELFPAY ==
--- NOTE | 2022-09-27 12:39 | US_ITS ---
INDICATION: DYSMENORRHEA EXAMINATION: Ultrasound US Transvaginal Non-OB TECHNIQUE: Transvaginal (for optimal evaluation of the adnexa) pelvic ultrasound was performed. Grayscale, spectral waveform, and color flow Doppler evaluation of the adnexa. COMPARISON: None. FINDINGS: The uterus measures 9.5 x 4.2 x 5.6 cm. The endometrium measures 1 cm in width with a normal trilaminar appearance. A small nabothian cyst is identified. Mild amount of fluid in the cervical canal. Questionable polyp in the cervical canal measures 1 x 0.4 x 0.7 cm. 1.9 x 1.4 cm simple cyst or dominant follicle in the right ovary. Flow to the ovaries bilaterally. Mild free pelvic fluid. US/Transvaginal Non- IMPRESSION: Mild fluid in the cervical canal. Questionable cervical polyp measures 1 x 0.4 x 0.7 cm. 1.9 cm simple cyst or dominant follicle in the right ovary. Electronically Signed: Luis Alfredo White MD at 7:59 EDT ,
== END | disposition home or self-care (01) ==
LOC: US 12:38
PROVIDERS: Referring Provider Nurse Practitioner Women's Health; Visit Provider Nurse Practitioner Women's Health
DX: N94.6 Dysmenorrhea, unspecified (principal)
CPT/HCPCS: 76830

== ENCOUNTER → 2022-10-17 | Outpatient (CLI) | payer MEDICAID, SELFPAY ==
[2022-10-17 14:42] LABS: ALB/GLOB Ratio 0.9 RATIO (0.9-2.4); AST(SGOT) 22 U/L (15-37); Alanine Aminotransfer ALT/SGPT 19 U/L (13-56); Albumin, Serum 3.9 g/dL (3.2-5.0); Alkaline Phosphatase 58 U/L (45-117); Anion Gap 4 (5-15); BUN 8 mg/dL (7-18); Chloride 101 mmol/L (98-107); Creatinine, Serum 1.14 mg/dL (0.55-1.02); EST Glomerular Filtration Rate 58 mL/min (>60); Est Glom Filt Rate - Afr Amer 70 mL/min (>60); Globulin 4.4 g/dL (2.2-4.2); Glucose 101 mg/dL (74-106); Protein, Total 8.3 g/dL (6.4-8.2); Sodium Level 132 mmol/L (136-145)
== END | disposition home or self-care (01) ==
LOC: LAB 13:20
DX: E03.9 Hypothyroidism, unspecified (principal); E86.0 Dehydration
CPT/HCPCS: 36415; 80053; 84439; 84443

== ENCOUNTER → 2022-11-08 | Outpatient (CLI) | payer MEDICAID, SELFPAY ==
[2022-11-08 12:36] LABS: Hematocrit 33.8 % (37-47); Hemoglobin 11.1 g/dL (12.0-15.0); Mean Corp Hgb Conc 32.8 g/dL (32-36); Mean Corpuscular Hgb 30.7 pg (27.0-32.0); Mean Corpuscular Volume 93.4 fL (81-99); Mean Platelet Vol. 9.7 fl (6.2-12.0); Platelet Count 335 K/mm3 (150-450); RBC Distribution Width CV 15.2 % (11.6-14.6); RBC Distribution Width SD 52.5 fl (35.1-43.9); Red Blood Count 3.62 M/mm3 (4.2-5.4); White Blood Count 6.2 K/mm3 (4.4-11.0)
[2022-11-08 12:47] LABS: ALB/GLOB Ratio 0.9 RATIO (0.9-2.4); AST(SGOT) 14 U/L (15-37); Alanine Aminotransfer ALT/SGPT 15 U/L (13-56); Albumin, Serum 3.9 g/dL (3.2-5.0); Alkaline Phosphatase 62 U/L (45-117); Anion Gap 5 (5-15); BUN 12 mg/dL (7-18); BUN/Creat Ratio 12.7 RATIO (10-20); Chloride 105 mmol/L (98-107); Creatinine, Serum 0.94 mg/dL (0.55-1.02); EST Glomerular Filtration Rate 72 mL/min (>60); Est Glom Filt Rate - Afr Amer 87 mL/min (>60); Estradiol 16.8 pg/mL; Follicle Stimulating Hormone 7.8 mIU/mL; Globulin 4.4 g/dL (2.2-4.2); Glucose 84 mg/dL (74-106); Potassium 4.1 mmol/L (3.5-5.1); Prolactin 12.4 ng/mL; Protein, Total 8.3 g/dL (6.4-8.2); Sodium Level 137 mmol/L (136-145)
[2022-11-08 13:50] LABS: Hemoglobin A1c 4.9 % (3.8-5.6)
[2022-11-17 10:08] LABS: HPV APTIMA, High Risk Negative (Negative)
== END | disposition home or self-care (01) ==
LOC: WOBLAB 11:38
PROVIDERS: Visit Provider Student in an Organized Health Care Education/Training Program
DX: N93.9 Abnormal uterine and vaginal bleeding, unspecified (principal); Z12.4 Encounter for screening for malignant neoplasm of cervix
CPT/HCPCS: 36415; 80053; 82670; 83001; 83002; 83036; 84144; 84146; 85027; 87624; 88175; G0145

== ENCOUNTER 2022-12-13 08:08 | Outpatient (CLI) | payer MEDICAID, SELFPAY ==
--- NOTE | 2022-12-13 10:31 | NEURO ---
NCS and/or EMG Patient Report Ordering Doctor: Ruperto Quintero DATE OF SERVICE: 12/13/22 Noreen presents for electrodiagnostic testing of the left upper limb. She has numbness and tingling in the left hand and pain in the left arm. Electrodiagnostic Findings: Left median motor nerve demonstrates normal distal latency, amplitude and conduction velocity. Left ulnar motor response, measured at the ADM and FDI, demonstrates a significant drop in amplitude across the elbow. This is an approximately 40% drop when measured at the ADM and a nearly 60% drop when measured at the FDI. Sensory responses are within normal limits. Left median and left ulnar F waves are within normal limits. There is an approximately 25% drop in ulnar motor conduction velocity at the elbow when measured at the FDI. Needle EMG testing demonstrates 1+ fibrillations in the left first dorsal interosseous. All other muscles tested showed no evidence of denervation with normal motor unit action potentials. Electrodiagnostic impression: This is an abnormal study in the left upper limb 1. Electrodiagnostic findings demonstrate left-sided ulnar neuropathy. This is consistent with a moderate left cubital tunnel syndrome. 2. No electrodiagnostic evidence is noted for median neuropathy, including carpal tunnel syndrome. 3. No electrodiagnostic evidence is noted for cervical radiculopathy. Multi Select Codes Neurology Neurology Interp Codes: 64948-94 Musc test done w/n test comp (interp) and 67263-65 Nrv cndj test 7-8 studies (interp)
[2022-12-16 15:07] LABS: HPV APTIMA, High Risk Negative (Negative)
== END 2022-12-13 23:59 | disposition home or self-care (01) ==
PROVIDERS: Student in an Organized Health Care Education/Training Program; Referring Provider Orthopaedic Surgery Sports Medicine; Visit Provider Orthopaedic Surgery Sports Medicine
DX: Z12.4 Encounter for screening for malignant neoplasm of cervix (principal); G56.22 Lesion of ulnar nerve, left upper limb; Z98.890 Other specified postprocedural states; E03.9 Hypothyroidism, unspecified
CPT/HCPCS: 36415; 84439; 84443; 87624; 88175; 95886; 95910; G0145

== ENCOUNTER → 2022-12-13 | Outpatient (CLI) | payer MEDICAID, SELFPAY | END | disposition home or self-care (01) | LOC: LAB 10:13 | PROVIDERS: Referring Provider Nurse Practitioner Family; Visit Provider Nurse Practitioner Family | DX: E03.9 Hypothyroidism, unspecified (principal) | CPT/HCPCS: 36415; 84439; 84443 ==

== ENCOUNTER 2023-01-24 07:35 | Day surgery (SDC) | payer MEDICAID, SELFPAY ==
[2023-01-24 08:04] VITALS: BP 117/84; PULSE 66; RESP 18; TEMP 36.4; O2SAT 99; BMI 31.4
[2023-01-24] MEDS: Lactated Ringers 1,000 ML 15 ML IV ×2 (08:12→10:01)
--- NOTE | 2023-01-24 08:46 | PCM.HP.STD ---
HPI - General HPI Narrative NOREEN SHERWOOD, is a 32 F who presents for left elbow cubital tunnel release surgery. No changes to history and physical exam. Pros and cons risks and benefits of the surgery as well as postoperative recovery explained to the patient. No further questions or concerns left upper extremity marked. Patient wishes to proceed. MR#: [id number] Acct: [id number] Name: NOREEN SHERWOOD Rep #: [id number] : 1990 Provider: Dr. Ruperto Quintero MD Age/Sex: 32/F Location: [facility] [place].PRINCESS Status: Signed Intake Vital Signs 10/26/2309:08 Height 5 ft 2 in Intake Visit Reasons: LEFT ARM Chief Complaint: Left hand pain Is patient in pain?: Yes Allergies hydromorphone [From Dilaudid] Allergy (Verified 12/22/22 09:24) Hiveslatex Allergy (Verified 12/22/22 09:24) Hivessoap Allergy (Verified 12/22/22 09:24) Hives Medications lisinopril 10 mg tablet 10 mg DAILY 03/23/22 [History Confirmed 12/22/22] buspirone 10 mg tablet 10 mg PO DAILY 06/07/22 [History Confirmed 12/22/22] ferrous sulfate 325 mg (65 mg iron) tablet (FeroSul) 325 mg PO DAILY 06/07/22 [History Confirmed 12/22/22] escitalopram oxalate 10 mg tablet 10 mg PO 10/26/22 [History Confirmed 12/22/22] levothyroxine 200 mcg tablet 100 mcg PO DAILY 12/22/22 [History Confirmed 12/22/22] PFSH Medical History Anxiety Asthma Cubital tunnel syndrome on left Depression HTN (hypertension) Hypoparathyroidism 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 Ruperto Quintero MD 12/22/22 0848. NOREEN SHERWOOD is a 32 year old F here today for FU NCS for left cubital tunnel syndrome. Patient is still having primarily numbness in the fifth digit. 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 The brace did help very slightly but again it is coming back mostly at work. Ortho Exam General General: Yes no acute distress Neurologic: Yes alert and Yes oriented x3 Psychologic: Yes reasonable and appropriate Supplemental Info [facility]/Neurology [address] [place] [address] MR#: [id number] Acct: [id number] Name: NOREEN SHERWOOD Rep #: [id number] : 1990 32 From: Mac Lilly MD Referring Dr: Ruperto Quintero MD Status: REG CLI Location: N Date: 12/13/22 Sex: F C NCS and/or EMG Patient Report Ordering Doctor: Ruperto Quintero DATE OF SERVICE: 12/13/22 Noreen presents for electrodiagnostic testing of the left upper limb. She has numbness and tingling in the left hand and pain in the left arm. Electrodiagnostic Findings: Left median motor nerve demonstrates normal distal latency, amplitude and conduction velocity. Left ulnar motor response, measured at the ADM and FDI, demonstrates a significant drop in amplitude across the elbow. This is an approximately 40% drop when measured at the ADM and a nearly 60% drop when measured at the FDI. Sensory responses are within normal limits. Left median and left ulnar F waves are within normal limits. There is an approximately 25% drop in ulnar motor conduction velocity at the elbow when measured at the FDI. Needle EMG testing demonstrates 1+ fibrillations in the left first dorsal interosseous. All other muscles tested showed no evidence of denervation with normal motor unit action potentials. Electrodiagnostic impression: This is an abnormal study in the left upper limb 1. Electrodiagnostic findings demonstrate left-sided ulnar neuropathy. This is consistent with a moderate left cubital tunnel syndrome. 2. No electrodiagnostic evidence is noted for median neuropathy, including carpal tunnel syndrome. 3. No electrodiagnostic evidence is noted for cervical radiculopathy. Multi Select Codes Neurology Neurology Interp Codes: 49521-56 Musc test done w/n test comp (interp) and 07741-07 Nrv cndj test 7-8 studies (interp) Coding Level of Care Code Off vis,est,level 4 Diagnoses Cubital tunnel syndrome on left G56.22 Assessment and Plan Assessment and Plan (1) Cubital tunnel syndrome on left: Status: Acute Plan: 32 F with clinical and NCS evidence of left cubital tunnel syndrome. Patient has failed conservative management and this does seem to be getting more progressive worse with time. They would like to go ahead with left elbow cubital tunnel release. We explained the pros and cons risks and benefits of that today as well as the recovery associated with this 2 weeks to heal the incision 6 weeks before going back to heavy lifting and gripping generally. Patient signed the consent form for surgery as well as possible need for blood products. They are trying to quit smoking however I did warn this is a risk factor for infection and other complications related to surgery. Pros and cons risks and benefits were discussed with the patient including but not limited to infection, pain, stiffness, bleeding, damage to surrounding structures, neurovascular injury, recurrence or retear, failure or wear of hardware or fixation, instability, fracture, deep vein thrombosis and pulmonary embolism, anesthetic risks, , patient dissatisfaction, need for further surgery and other risks. Patient understood and wished to proceed with surgery, and signed the informed consent documentation. 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 thyroid gland Hypothyroid Low iron Marijuana use PTSD (post-traumatic stress disorder) Restless legs Smoker Thyroid disease Wears glasses Home Medications lisinopril 10 mg tablet 10 mg PO DAILY 03/23/22 [History Last Taken 01/24/23] buspirone 10 mg tablet 10 mg PO DAILY 06/07/22 [History Last Taken Unknown] ferrous sulfate 325 mg (65 mg iron) tablet (FeroSul) 325 mg PO DAILY 06/07/22 [History Last Taken Unknown] escitalopram oxalate 10 mg tablet 10 mg PO DAILY 10/26/22 [History Last Taken 01/24/23] levothyroxine 200 mcg tablet 100 mcg PO DAILY 12/22/22 [History Last Taken 01/24/23] Allergy/AdvReac Type Severity Reaction Status Date / Time hydromorphone [From Dilaudid] Allergy Hives Verified 01/24/23 08:02 latex Allergy Hives Verified 01/24/23 08:02 soap Allergy Hives Verified 01/24/23 08:02 Surgical History (Updated 01/17/23 @ 15:08 by Regina Hernandez) History of carpal tunnel surgery of left wrist History of carpal tunnel surgery of right wrist History of tubal ligation (~2009) Social History Smoking Status: Current every day smoker tobacco type: cigarettes alcohol intake: never Vital Signs Vital Signs Vital Signs: 01/24/23 08:04 01/24/23 08:04 Temperature 97.6 F L Temperature Source Temporal Pulse Rate 66 Respiratory Rate 18 Respiratory Pattern Normal Blood Pressure 117/84 H Blood Pressure Mean 95 Blood Pressure Source Monitor Blood Pressure Position Semi-Fowlers Blood Pressure Location Right Arm Pulse Ox 99 Oxygen Delivery Method Room Air Weight Weight: 171 lb 15.369 oz Body Mass Index (BMI) 31.4
[2023-01-24] MEDS: Cefazolin 2 GM in 0.9% Normal Saline 100 ML IV (09:07)
[2023-01-24] MEDS: Bupivacaine 0.25% 30 ML Vial (10:03)
--- NOTE | 2023-01-24 10:15 | OP.PCM_ITS ---
Problems Associated Problem List Diagnoses (1) Cubital tunnel syndrome on left: Report of Operation Date of Procedure: 01/24/23 Pre-Operative Diagnosis: left elbow cubital tunnel syndrome Post-Operative Diagnosis: same Surgery/Procedure Performed:: left elbow cubital tunnel release Surgeon: Ruperto Quintero Type of Anesthesia: General and Local Anesthesiologist: Artem Cortes Estimated Blood Loss (mL): 20 Description of Procedure: Patient brought to the operating room theater.? Placed supine on the operating room table.? Hand table to the patient's left side.? 18 inch tourniquet he applied to the left upper extremity appropriately padded.? 2 g IV Ancef administered prior to the start of the procedure. General anesthesia induced.? Left upper extremity prepped and draped in the usual sterile fashion regards to the base prep solution allowing over 3 minutes drying time prior to draping.? Pr eoperative timeout performed to confirm the site the patient and the surgery.? All bony prominences appropriately padded.? SCDs on the legs. Began by using a sterile eshmar, exsanguinating the limb inflating the tourniquet to 250 mmHg.? Made a standard curvilinear incision at the medial aspect of the elbow directly over the ulnar nerve.? Carried the dissection down through skin and subcutaneous tissue achieved meticulous hemostasis.? Identified the ulnar nerve proximally.? Released all the tissues over top of the nerve.? Released all 5 sites of compression proximal medial intermuscular septum , arcade of struthers fascia, Fernández's ligament Fernández's fascia between the 2 heads of the FCU both superficial and deep fascia, distally down to the level of the first motor branch.? No impingement on the medial epicondyle.? No snapping of the nerve the nerve, no nerve instability therefore decided to leave the ulnar nerve in situ. Tourniquet let down meticulous hemostasis achieved.? Used bipolar cautery.? Thorough irrigation with NS. Subcutaneous tissue closed with 2-0 vicryl, skin with 3-0 monocryl.? Skin cleaned with wet and dry dressing 10 cc 0.5 percent bupivacaine around the incision site.? Steri-Strips applied followed by Adaptic 4 x 4 gauze loosely wrapped 4 inch Sathish wrap.? Case terminated dressing drapes and tourniquet removed.? Patient woken up from the general anesthetic tr ansferred off the operating table and taken to postanesthetic care unit in stable condition.? All sponge needle instrument counts were correct no complications.? Plan for the patient gentle range of motion no heavy lifting or gripping follow-up in the office in 2 days time. ?Neuroplasty and/or transposition; ulnar nerve at elbow (59547) Complications none Admit VTE Documentation VTE Present on Admission: No VTE Mechan Device Prophylaxis: SCD's Reason prophylaxis not ordered:: Treatment Not Indicated Procedures Musculoskeletal 20xxx-29xxx: Other Procedure See Report
--- NOTE | 2023-01-24 10:18 | EX.PCM.DISCH ---
Discharge Instructions Diet Discharge Diet: No restrictions Activity Lifting Restrictions: gentle ROM of elbow / hand, no heavy lifting Keep extremity elevated above heart level: Operative Extremity Dressing / Incision Call your doctor if your incision/area has: Continuous Slow Oozing, Sudden Increased Bleeding, Increased Pain/ Swelling, Increased Redness, Foul Smelling Discharge and Swelling at the incision site Change Dressing in: leave in place till F/U Follow Up Care Please Follow Up With: Ruperto Quintero MD When: 2 days Test Results: Test results from this visit will be discussed in further detail at your follow-up appointment, if applicable. Discharge Plan Admission Attending Provider: Ruperto Quintero Primary Care Provider: Care Physician,Kinza Primary Discharge Orders/Prescriptions Prescriptions: New acetaminophen-codeine 300-15 mg tablet 1 tab PO Q6H MDD 4 PRN (Reason: pain) 3 Days Qty: 10 0RF No Action escitalopram oxalate 10 mg tablet 10 mg PO DAILY levothyroxine 200 mcg tablet 100 mcg PO DAILY lisinopril 10 mg tablet 10 mg PO DAILY Patient Comments: take 1 tablet by mouth once daily ferrous sulfate [FeroSul] 325 mg (65 mg iron) tablet 325 mg PO DAILY Patient Comments: take 1 tablet by mouth every other day buspirone 10 mg tablet 10 mg PO DAILY Patient Comments: take 1 tablet by mouth IN THE MORNING and at bedtime Referrals / Follow Up: Ruperto Quintero MD [Med Staff - Active Staff] - Care Physician,No Primary [Primary Care Provider] - Disposition Disposition (needs filled in before D/C Order can be placed): Home, Self Care
[2023-01-24 10:19] VITALS: BP 112/92; BP 117/84; PULSE 102; RESP 18; TEMP 36.4; O2SAT 94
[2023-01-24 10:30] VITALS: BP 117/84; BP 118/84; PULSE 70; RESP 16; O2SAT 96
[2023-01-24 10:45] VITALS: BP 116/77; BP 117/84; PULSE 66; RESP 16; O2SAT 100
[2023-01-24 10:50] VITALS: BP 109/72; BP 117/84; PULSE 59; RESP 16; TEMP 36.7; O2SAT 100
[2023-01-24 11:04] VITALS: BP 117/84
== END 2023-01-24 11:18 | disposition home or self-care (01) ==
LOC: SDC 07:35 → AC 07:37
PROVIDERS: Referring Provider Orthopaedic Surgery Sports Medicine; Visit Provider Orthopaedic Surgery Sports Medicine
PROC: (CPT 64718; principal; 2023-01-24 08:55)
DX: G56.22 Lesion of ulnar nerve, left upper limb (principal); F43.10 Post-traumatic stress disorder, unspecified; I10 Essential (primary) hypertension; F17.210 Nicotine dependence, cigarettes, uncomplicated; E03.9 Hypothyroidism, unspecified
CPT/HCPCS: 64718; J7120; J2405

== ENCOUNTER 2023-05-18 21:37 | Emergency (ER) | payer SELFPAY ==
[2023-05-18 21:39] VITALS: BP 136/107; PULSE 100; RESP 16; TEMP 36.8; O2SAT 100; BMI 33.1
[2023-05-18 23:36] LABS: Absolute Lymphocyte Count 3.03 X10^3/uL (0.83-4.51); Absolute Neutrophil Count 2.2 X10^3/uL (2.0-7.7); Basophil# 0.06 X10^3/uL; Eosinophil# 0.18 X10^3/uL; Eosinophils% 3.1 % (0-5); Hematocrit 31.8 % (37-47); Hemoglobin 10.6 g/dL (12.0-15.0); Lymphocyte # 3.03 X10^3/ul (0.83-4.51); Lymphocyte % 51.4 % (19-41); Mean Corp Hgb Conc 33.3 g/dL (32-36); Mean Corpuscular Hgb 30.2 pg (27.0-32.0); Mean Corpuscular Volume 90.6 fL (81-99); Mean Platelet Vol. 10.9 fl (6.2-12.0); Monocyte# 0.44 X10^3/uL; Monocyte% 7.5 % (0-10); NRBC Flagged by Analyzer 0 % (0-5); Neutrophil # 2.18 X10^3/uL (2.7-7.7); Neutrophil % 36.8 % (47-70); Platelet Count 274 K/mm3 (150-450); RBC Distribution Width CV 16.4 % (11.6-14.6); RBC Distribution Width SD 55.1 fl (35.1-43.9); Red Blood Count 3.51 M/mm3 (4.2-5.4); White Blood Count 5.9 K/mm3 (4.4-11.0)
[2023-05-19 00:48] LABS: AST(SGOT) 94 U/L (15-37); Alanine Aminotransfer ALT/SGPT 65 U/L (13-56); Alkaline Phosphatase 49 U/L (45-117); Anion Gap 4 (5-15); BUN 12 mg/dL (7-18); Bilirubin, Direct 0.09 mg/dL (0.00-0.30); Calcium,Total 8.9 mg/dL (8.5-10.1); Chloride 102 mmol/L (98-107); Creatinine, Serum 1.34 mg/dL (0.55-1.02); EST Glomerular Filtration Rate 48 mL/min (>60); Est Glom Filt Rate - Afr Amer 58 mL/min (>60); Estimated Creatinine Clearance 46.79 ml/min; Globulin 4.4 g/dL (2.2-4.2); Glucose 75 mg/dL (74-106); Magnesium 2.2 mg/dL (1.6-2.6); Potassium 3.9 mmol/L (3.5-5.1); Protein, Total 8.4 g/dL (6.4-8.2); Sodium Level 136 mmol/L (136-145)
--- NOTE | 2023-05-19 01:05 | EDS_ITS ---
HPI History of Present Illness Chief Complaint: Weakness Informant: patient Narrative Narrative: Patient is a 32-year-old female with past medical history of hypothyroidism hypertension and iron deficiency anemia. She states that she has been off of her blood pressure and thyroid medication for multiple months as something changed with her insurance and she could not get her medication refilled nor could she find a new doctor to take over her care. She states in the past few days she has had generalized weakness sensation with feeling cold and poor appetite. She states that she has gotten this way in the past when she has been off her thyroid meds. She denies any fevers or chills dysuria concern for and states that despite her history of iron deficiency anemia she has not noticed blood in her urine or stool. 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 Hypothyroid Low iron Marijuana use PTSD (post-traumatic stress disorder) Restless legs Smoker Thyroid disease Wears glasses Home Medications lisinopril 10 mg tablet 10 mg PO DAILY 03/23/22 [History Last Taken 01/24/23] buspirone 10 mg tablet 10 mg PO DAILY 06/07/22 [History Last Taken Unknown] ferrous sulfate 325 mg (65 mg iron) tablet (FeroSul) 325 mg PO DAILY 06/07/22 [History Last Taken Unknown] escitalopram oxalate 10 mg tablet 10 mg PO DAILY 10/26/22 [History Last Taken 01/24/23] levothyroxine 200 mcg tablet 100 mcg PO DAILY 12/22/22 [History Last Taken 01/24/23] levothyroxine 100 mcg tablet (Synthroid) 100 mcg PO DAILY 30 days #30 tabs 05/19/23 [Rx Last Taken Unknown] Allergy/AdvReac Type Severity Reaction Status Date / Time hydromorphone [From Dilaudid] Allergy Hives Verified 05/18/23 21:41 latex Allergy Hives Verified 05/18/23 21:41 soap Allergy Hives Verified 05/18/23 21:41 Surgical History History of carpal tunnel surgery of left wrist History of carpal tunnel surgery of right wrist History of tubal ligation (~2009) Social History Smoking Status: Current every day smoker tobacco type: cigarettes alcohol intake: never ROS ROS ED Constitutional Constitutional ED: Denies chills or fever(s) Eyes Eyes: Denies change in vision ENT ENT ED: Denies sore throat Cardiovascular Cardiovascular: Denies chest pain, palpitations or racing heartbeat Respiratory/Chest Respiratory/Chest: Denies cough or dyspnea Gastrointestinal Gastrointestinal: Reports nausea; Denies abdominal pain, diarrhea or vomiting Genitourinary Genitourinary ED: Denies dysuria or hematuria Musculoskeletal Musculoskeletal: Denies myalgias Integumentary Denies rash Neurologic Neurologic: Reports weakness; Denies headache(s) or paresthesias Hematologic/Lymphatic Hematologic/Lymphatic: Denies easy bleeding or easy bruising EXAM Physical Exam Const Vital Signs: 05/18/23 21:39 05/18/23 23:11 05/19/23 01:16 Temperature 98.3 F Temperature Source Temporal Pulse Rate 100 54 L Respiratory Rate 16 12 Respiratory Effort Normal Respiratory Pattern Normal Blood Pressure 136/107 H 110/65 Blood Pressure Mean 116 80 Pulse Ox 100 99 Oxygen Delivery Method Room Air Positive well nourished and well developed General Appearance ED: well developed and pallor HEENT Reports dry mucous membranes HEENT Narrative: Mucous membranes are dry and tacky No airway edema or compromise No signs of infection noted in the posterior pharynx Mouth ED: Yes dry mucous membranes Mouth: dry mucous membranes Eyes PERRL and EOMs intact bilaterally General Eye ED: Negative for scleral icterus Neck supple Neck Narrative: No nuchal rigidity or meningeal signs noted Resp normal respiratory effort and clear to auscultation bilaterally Cardio regular rate and regular rhythm Rate: other Other Details: Heart is regular rate and rhythm without murmurs rubs or gallops Radial and carotid pulses are equal and symmetric GI non-tender, non-distended and no masses GI Narrative: Abdomen is soft nontender and nondistended with hypoactive bowel sounds No voluntary guarding or rigidity No pulsatile mass or fluid wave Auscultation: hypoactive bowel sounds Palpation: soft Back/Spine no CVA tenderness Extremity normal to inspection Extremity Narrative: No asymmetric edema no pitting edema negative Homans' sign bilaterally Neuro oriented x3 and CN's II-XII intact bilaterally Neuro Narrative: Patient does have 1 beat of clonus of each lower leg and patellar reflexes are plus 3 out of 4 bilaterally Sensorium / Orientation: alert Motor Exam: strength 5/5 throughout Psych mental status grossly normal Skin no rashes or lesions noted General Skin Exam: pallor; Negative for jaundice MDM MDM MDM Narrative Medical decision making narrative: Patient presented to the ER hypertensive otherwise with stable vital. She reported generalized weakness and differential diagnosis for this is acute blood loss anemia versus acute kidney injury versus electrolyte derangement versus hypothyroidism. As she did not have focal deficits there is no concern for stroke/TIA and I felt no need for head CT. Basic blood work is obtained which does show anemia but this is near patient's baseline with no need for transfusion and creatinine is just slightly elevated going against MARIA DEL CARMEN. The patient's TSH is greatly elevated at 124 consistent with hypothyroidism. At this point she does not have myxedema coma or thyroid storm so there is no need for inpatient treatment and patient can be discharged home with new prescription of her levothyroxine History & Record Review Discussion w/independent historian: Patient Lab Data Attestation: I reviewed the patient's lab results. Labs: Laboratory Results - last 24 hr 05/18/23 22:10 WBC 5.9 RBC 3.51 L Hgb 10.6 L Hct 31.8 L MCV 90.6 MCH 30.2 MCHC 33.3 RDW Std Deviation 55.1 H RDW Coeff of Acacia 16.4 H Plt Count 274 MPV 10.9 Immature Gran % (Auto) 0.200 Neut % (Auto) 36.8 L Lymph % (Auto) 51.4 H [place] % (Auto) 7.5 Eos % (Auto) 3.1 Baso % (Auto) 1.0 Absolute Neuts (auto) 2.2 Absolute Lymphs (auto) 3.03 Nucleated RBC % 0 Sodium 136 Potassium 3.9 Chloride 102 Carbon Dioxide 30.0 Anion Gap 4 L BUN 12 Creatinine 1.34 H Estim Creat Clear Calc 46.79 Est GFR (MDRD) Af Amer 58 L Est GFR (MDRD) Non-Af 48 L BUN/Creatinine Ratio 9.0 L Glucose 75 Calcium 8.9 Magnesium 2.2 Total Bilirubin 0.30 Direct Bilirubin 0.09 AST 94 H ALT 65 H Alkaline Phosphatase 49 Total Protein 8.4 H Albumin 4.0 Globulin 4.4 H TSH 124.00 H Discharge Plan Triage Chief Complaint: Weakness ED Provider: Kali Guerra Dx/Rx/DC Orders Clinical Impression: Hypothyroid, Bipolar disorder, Hypertension Instructions: Common Thyroid Problems, ED Hypothyroidism Prescriptions: New levothyroxine [Synthroid] 100 mcg tablet 100 mcg PO DAILY 30 Days Qty: 30 0RF No Action escitalopram oxalate 10 mg tablet 10 mg PO DAILY Patient Comments: not taking d/t insurance levothyroxine 200 mcg tablet 100 mcg PO DAILY Patient Comments: not covered by insurance hasn't rafael since november 2022 lisinopril 10 mg tablet 10 mg PO DAILY Patient Comments: take 1 tablet by mouth once daily; not taking because of insurance ferrous sulfate [FeroSul] 325 mg (65 mg iron) tablet 325 mg PO DAILY Patient Comments: take 1 tablet by mouth every other day buspirone 10 mg tablet 10 mg PO DAILY Patient Comments: take 1 tablet by mouth IN THE MORNING and at bedtime; not taking because of insurance Primary Care Provider: Care Physician,No Primary Referrals: Care Physician,No Primary [Primary Care Provider] - Activity Restrictions/Additional Instructions: Please keep your appointment with your family doctor for May and at that time they can potentially recheck your thyroid markers to see if the medication is sufficient. If you have any further concerns or worsening of symptoms please return for repeat evaluation Disposition Disposition: Home, Self Care Discharge Date/Time: 05/19/23 01:55
[2023-05-19 01:16] VITALS: BP 110/65; PULSE 54; RESP 12; O2SAT 99
[2023-05-19] MEDS: LEVOTHYROXINE SODIUM 100 MCG VIAL IV (01:49)
== END 2023-05-19 01:55 | disposition home or self-care (01) ==
PROVIDERS: Emergency Provider Emergency Medicine; Visit Provider Emergency Medicine
DX: R53.1 Weakness (principal); F31.9 Bipolar disorder, unspecified; E20.9 Hypoparathyroidism, unspecified; E03.9 Hypothyroidism, unspecified; I10 Essential (primary) hypertension; Z79.899 Other long term (current) drug therapy; F41.9 Anxiety disorder, unspecified; F17.210 Nicotine dependence, cigarettes, uncomplicated
CPT/HCPCS: 80048; 80076; 83735; 84443; 85025; 99283; A4216

== ENCOUNTER 2023-08-14 17:11 | Observation (INO) | payer SELFPAY ==
[2023-08-14 17:11] VITALS: BP 129/94; PULSE 96; RESP 16; TEMP 36.6; O2SAT 100; BMI 32.7
--- NOTE | 2023-08-14 17:43 | US_ITS ---
We are attempting to reach an attending provider to discuss findings. An addendum with communication details will be sent when the communication is complete. STUDY: FIRST TRIMESTER OBSTETRICAL ULTRASOUND REASON FOR EXAM: Female, 33 years old + home test x 3, H/O tubal ligation MILD LLQ PAIN LMP: TECHNIQUE: Transvaginal TECHNICAL QUALITY: Adequate. PRIOR ULTRASOUND: None. FINDINGS: No evidence for intrauterine gestation.. The estimated gestation age (EGA) by LMP is 5 weeks, 2 days. The estimated date of delivery (TOM) by LMP is March 2024. The estimated gestation age (EGA) by US is weeks, days. The estimated date of delivery (TOM) by US is . The uterus measures 8.4 x 5.5 x 4.8 cm. The endometrial lining is thickening measuring 1.8 cm There is no demonstrated uterine fibroid. The cervix is closed. The right ovary measures 3.6 x 2.2 x 1.6 cm. There is no right ovarian cyst. There is no visualized right adnexal mass or complex lesion. The left ovary measures 2.7 x 2.1 x 1.7 cm. There is no left ovarian cyst. There is no visualized left adnexal mass or complex lesion. There is a large amount of complex fluid in the cul-de-sac possibly hemorrhagic. Ruptured hemorrhagic cyst or ectopic not entirely excluded US/Transvaginal w/Preg US IMPRESSION: No evidence for intrauterine gestation No adnexal mass is seen however there is a large amount of complex fluid and possibility of ruptured hemorrhagic cyst or ectopic cannot be excluded. Clinical correlation recommended and follow-up studies if indicated Electronically Signed: Dalton Gomez MD at 19:56 EST ,
[2023-08-14] MEDS: 0.9% Normal Saline (1000mL) 1,000 ML 150 ML IV (17:53)
--- NOTE | 2023-08-14 17:56 | EDS_ITS ---
HPI History of Present Illness Chief Complaint: Abd Pain Informant: patient Onset/Context/Timing Onset: Yesterday Narrative Narrative: Patient presents secondary to waxing and waning left lower quadrant pain that st arted yesterday. She states she took a home test and had 3 positive test at home. Her last menstrual period was on July 08. She had a tubal ligation 14 years ago. 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 Hypothyroid Low iron Marijuana use PTSD (post-traumatic stress disorder) Restless legs Smoker Thyroid disease Wears glasses Home Medications lisinopril 10 mg tablet 10 mg PO DAILY 03/23/22 [History Last Taken 01/24/23] buspirone 10 mg tablet 10 mg PO DAILY 06/07/22 [History Last Taken Unknown] ferrous sulfate 325 mg (65 mg iron) tablet (FeroSul) 325 mg PO DAILY 06/07/22 [History Last Taken Unknown] escitalopram oxalate 10 mg tablet 10 mg PO DAILY 10/26/22 [History Last Taken 01/24/23] levothyroxine 200 mcg tablet 100 mcg PO DAILY 12/22/22 [History Last Taken 01/24/23] levothyroxine 100 mcg tablet (Synthroid) 100 mcg PO DAILY 30 days #30 tabs 05/19/23 [Rx Last Taken Unknown] Allergy/AdvReac Type Severity Reaction Status Date / Time hydromorphone [From Dilaudid] Allergy Hives Verified 08/14/23 17:13 latex Allergy Hives Verified 08/14/23 17:13 soap Allergy Hives Verified 08/14/23 17:13 Surgical History History of carpal tunnel surgery of left wrist History of carpal tunnel surgery of right wrist History of tubal ligation (~2009) Social History Smoking Status: Current every day smoker tobacco type: cigarettes alcohol intake: never ROS ROS ED Constitutional Constitutional ED: Denies chills or fever(s) Eyes Eyes: Denies discharge from eye(s) ENT ENT ED: Denies discharge from eye(s), rhinorrhea or sore throat Cardiovascular Cardiovascular: Denies chest pain or palpitations Respiratory/Chest Respiratory/Chest: Denies cough or dyspnea Gastrointestinal Gastrointestinal: Reports abdominal pain; Denies diarrhea, nausea or vomiting Genitourinary Genitourinary ED: Denies difficulty urinating, dysuria or hematuria Musculoskeletal Musculoskeletal: Denies back pain or extremity pain Integumentary Denies Abrasions or rash Neurologic Neurologic: Denies headache(s) or weakness Psychiatric Psychiatric: Reports anxiety; Denies depression Allergic/Immunologic Allergic/Immunologic ED: Denies lip swelling or urticaria EXAM Physical Exam Const Vital Signs: 08/14/23 17:11 Temperature 97.8 F Temperature Source Temporal Pulse Rate 96 Respiratory Rate 16 Blood Pressure 129/94 H Blood Pressure Mean 105 Pulse Ox 100 Oxygen Delivery Method Room Air Positive well nourished and well developed General Appearance ED: well developed HEENT Reports moist mucous membranes Eyes EOMs intact bilaterally Chest Wall inspection of chest normal and palpation of chest normal Resp normal respiratory effort and clear to auscultation bilaterally Cardio regular rate and regular rhythm GI non-tender Auscultation: normoactive bowel sounds Palpation: soft Extremity normal to inspection Neuro oriented x3 and no sensory deficits noted Psych Mood & Affect: anxious Skin no rashes or lesions noted MDM MDM MDM Narrative Medical decision making narrative: IV line established. hCG quant will be obtained along with blood type. Pelvic ultrasound obtained to evaluate for potential ectopic . History & Record Review Discussion w/independent historian: Patient Lab Data Attestation: I reviewed the patient's lab results. Labs: Laboratory Results - last 24 hr 08/14/23 17:55 WBC 4.0 L RBC 3.27 L Hgb 9.8 L Hct 30.1 L MCV 92.0 MCH 30.0 MCHC 32.6 RDW Std Deviation 47.8 H RDW Coeff of Acacia 14.1 Plt Count 211 MPV 9.8 Immature Gran % (Auto) 0.200 Neut % (Auto) 33.7 L Lymph % (Auto) 55.2 H [place] % (Auto) 8.0 Eos % (Auto) 2.2 Baso % (Auto) 0.7 Absolute Neuts (auto) 1.4 L Absolute Lymphs (auto) 2.22 Nucleated RBC % 0 Differential Comment SCANNED Atypical Lymphocytes RARE Sodium 137 Potassium 3.3 L Chloride 105 Carbon Dioxide 27.0 Anion Gap 5 BUN 8 Creatinine 1.09 H Estim Creat Clear Calc 71.15 Est GFR (MDRD) Af Amer 73 Est GFR (MDRD) Non-Af 61 BUN/Creatinine Ratio 7.3 L Glucose 82 Calcium 8.5 HCG, Quant 419 H Blood Type AB POSITIVE Radiography Diagnostic Testing: Clinical Impression(s) from Imaging Studies Obstetrics Ultrasound 08/14/23 17:43 IMPRESSION: No evidence for intrauterine gestation No adnexal mass is seen however there is a large amount of complex fluid and possibility of ruptured hemorrhagic cyst or ectopic cannot be excluded. Clinical correlation recommended and follow-up studies if indicated Electronically Signed: Dalton Gomez MD at 19:56 EST , ADDENDUM: 08/14/232010 IMPRESSION: No evidence for intrauterine gestation No adnexal mass is seen however there is a large amount of complex fluid and possibility of ruptured hemorrhagic cyst or ectopic cannot be excluded. Clinical correlation recommended and follow-up studies if indicated N.B. : The above Results were Read Back by Dalton Gomez MD to Jill Fong MD, and understanding confirmed on 08/14/2023 20:04:55 (ET). Electronically Signed: Dalton Gomez MD at 19:56 EST , Treatment and Re-Evaluation :: CBC reveals a white count of 4.0 with a hemoglobin of 9.8. Platelet count is normal at 211. Chemistry studies reveal potassium 3.3. hCG quant is 419. Blood type is AB+. Pelvic ultrasound reveals no evidence of intrauterine gestation. There is no adnexal mass seen, however there is a large amount of complex fluid and possibility of ruptured hemorrhagic cyst or ectopic cannot be excluded. Test results discussed with the patient. She continues to have only mild pain. Her vital signs have been stable. I spoke with Diamond Vargas, on-call for no doc [employer]PUT[employer] INVESTIGATOR. She does not feel patient needs to go to the OR tonight, but will admit her for observation. This was discussed with the patient and she is in agreement. Discharge Plan Triage Chief Complaint: Abd Pain ED Provider: Jill Fong Dx/Rx/DC Orders Clinical Impression: , Free fluid in pelvis Prescriptions: No Action escitalopram oxalate 10 mg tablet 10 mg PO DAILY Patient Comments: not taking d/t insurance levothyroxine 200 mcg tablet 100 mcg PO DAILY Patient Comments: not covered by insurance hasn't rafael since november 2022 lisinopril 10 mg tablet 10 mg PO DAILY Patient Comments: take 1 tablet by mouth once daily; not taking because of insurance ferrous sulfate [FeroSul] 325 mg (65 mg iron) tablet 325 mg PO DAILY Patient Comments: take 1 tablet by mouth every other day buspirone 10 mg tablet 10 mg PO DAILY Patient Comments: take 1 tablet by mouth IN THE MORNING and at bedtime; not taking because of insurance levothyroxine [Synthroid] 100 mcg tablet 100 mcg PO DAILY 30 Days Qty: 30 0RF Primary Care Provider: Care Physician,No Primary Referrals: Care Physician,No Primary [Primary Care Provider] - Disposition Disposition: Acute Care Hospital [facility]
[2023-08-14 18:15] LABS: Absolute Lymphocyte Count 2.22 X10^3/uL (0.83-4.51); Absolute Neutrophil Count 1.4 X10^3/uL (2.0-7.7); Basophil# 0.03 X10^3/uL; Basophil% 0.7 % (0-1); Eosinophil# 0.09 X10^3/uL; Eosinophils% 2.2 % (0-5); Hematocrit 30.1 % (37-47); Hemoglobin 9.8 g/dL (12.0-15.0); Lymphocyte # 2.22 X10^3/ul (0.83-4.51); Lymphocyte % 55.2 % (19-41); Mean Corp Hgb Conc 32.6 g/dL (32-36); Mean Platelet Vol. 9.8 fl (6.2-12.0); Monocyte# 0.32 X10^3/uL; NRBC Flagged by Analyzer 0 % (0-5); Neutrophil # 1.35 X10^3/uL (2.7-7.7); Neutrophil % 33.7 % (47-70); POSITIVE MORPHOLOGY YES; Platelet Count 211 K/mm3 (150-450); RBC Distribution Width CV 14.1 % (11.6-14.6); RBC Distribution Width SD 47.8 fl (35.1-43.9); Red Blood Count 3.27 M/mm3 (4.2-5.4)
[2023-08-14 18:25] LABS: Differential Indicated SCAN CRITERIA MET
[2023-08-14 18:31] LABS: Anion Gap 5 (5-15); BUN 8 mg/dL (7-18); BUN/Creat Ratio 7.3 RATIO (10-20); Calcium,Total 8.5 mg/dL (8.5-10.1); Chloride 105 mmol/L (98-107); Creatinine, Serum 1.09 mg/dL (0.55-1.02); EST Glomerular Filtration Rate 61 mL/min (>60); Est Glom Filt Rate - Afr Amer 73 mL/min (>60); Estimated Creatinine Clearance 71.15 ml/min; Glucose 82 mg/dL (74-106); Potassium 3.3 mmol/L (3.5-5.1); Sodium Level 137 mmol/L (136-145)
[2023-08-14 18:35] LABS: Atypical Lymphocyte RARE %; Differential Comment SCANNED; hCG Titer Quant., Serum 419 mIU/mL (1-3)
--- OUTSIDE RECORDS SUMMARY | 2023-08-14 20:52 | XMS RPT_ITS | CCD ---
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 1988 Unknown [id number] 2.16. 840.1.516422.3.579.2. 1988 Unknown [id number] 2.16. 840.1.804927.3.579.2.8 1988 Unknown [id number] 2.16. 840.1.251026.3.579.2. 1988 Unknown [id number] 2.16. 840.1.748570.3.579.2. 1988 Unknown [id number] 2.16. 840.1.058960.3.579.2. 1988 Unknown [id number] 2.16. 840.1.948651.3.579.2. 1988 Unknown [id number] 2.16. 840.1.393201.3.579.2. 1988 Unknown [id number] 2.16. 840.1.330133.3.579.2 1988 Unknown [id number] 2.16. 840.1.493695.3.579.2 1988 Unknown [id number] 2.16. 840.1.810789.3.579.2 1988 Unknown [id number] 2.16 840.1.147507.3.579.2 1988 Unknown [id number] 2.16. 840.1.030632.3.579.2 1988 Unknown [id number] 2.16. 840.1.188854.3.579.2. 1988 Unknown [id number] 2.16. 840.1.886517.3.579.2 1988 Unknown [id number] 2.16. 840.1.931065.3.579.2 1988 Unknown [id number] 2.16. 840.1.514483.3.579.2 1988 Unknown [id number] 2.16. 840.1.039147.3.579.2 1988 Unknown [id number] 2.16. 840.1.631953.3.579.2 1988 Unknown [id number] 2.16. 840.1.839912.3.579.2.668 1988 Unknown [id number] 2.16. 840.1.560038.3.579.2. 1988 Unknown [id number] 2.16. 840.1.477714.3.579.2.8 1988 Unknown [id number] 2.16. 840.1.473343.3.579.2. 1988 Unknown [id number] 2.16. 840.1.478843.3.579.2. 1988 Unknown [id number] 2.16. 840.1.324818.3.579.2. 1988 Unknown [id number] 2.16. 840.1.442193.3.579.2. 1988 Unknown [id number] 2.16. 840.1.713646.3.579.2. 1988 Unknown [id number] 2.16. 840.1.745318.3.579.2. 1988 Unknown [id number] 2.16. 840.1.851202.3.579.2. 1988 Unknown [id number] 2.16. 840.1.895433.3.579.2. 1988 Unknown [id number] 2.16.8 40.1.602074.3.579.2.627 Private Health Insurance Social History Date Type Detail Facility Start: 09-02-2020 End: 01-30-2022 Tobacco smoking status MDIS Current every day smoker [employer] Phone: History of tobacco use Cigarette Smoker S [facility] Work Phone: Start: 09-02-2020 End: 02-08-2022 Cigarettes smoked current (pack per day) - Reported [employer] Phone: Start: 09-02-2020 End: 01-30-2022 Tobacco use and exposure Never used [facility] Work Phone: Start: 09-02-2020 End: 02-20-2022 Alcohol intake Ex-drinker (finding) [employer] Work Phone: Start: 10-14-2018 End: 01-30-2022 Tobacco Comment 1ppd [employer] Work Phone: Start: 05-24-2017 Alcohol Comment social [employer] Work Phone: Start: 1990 Sex Assigned At Not on file S [facility] Work Phone: Start: 06-02-2021 End: 11-28-2021 Exposure to SARS-CoV-2 (event) Not sure [employer] Work Phone: Start: 1990 Sex Assigned At Female S [facility] Start: 08-24-2021 History SDOH Alcohol Frequency 1 [employer] Work Phone: Start: 08-24-2021 History SDOH Social Connections Get Together 2 [employer] Work Phone: Start: 08-24-2021 History SDOH Social Connections Meetings 3 [employer] Work Phone: Start: 08-24-2021 History SDOH Social Connections Living 8 [employer] Work Phone: Start: 08-24-2021 History SDOH Physica l Activity DPW 0 [employer] Work Phone: Start: 08-24-2021 History SDOH Stress 5 [facility] Work Phone: Start: 03-24-2022 Tobacco smoking status Light t obacco smoker (finding) [facility] Sex Assigned At Sex [facility] Tobacco smoking stat us MDIS Tobacco smoking consumption unknown [facility] Start: 02-08-2022 Tobacco use panel [facility] Goals Date Patient Goal Desired Activity /State Functional Status Date Assessment Result Facility 03-24-2022 Functional Status Standard Safet y ID band on, Allergy Band on, Call device within reach, Bed in low position, Wheels locked [facility] Mental Status Date Assessment Result Facility 03-24-2022 Mental Status Orientation Oriented x 4 [facility] Discharge instructions 03-24-2022 Note Date & Type Note Facility 03-24-2022 Hospital Discharg e instructions Patient Education 03/24/2022 12:12:59 Dental Pain Dental Pain A crack or cavity in a tooth can cause tooth pain. This is because the crack or cavity exposes the sensitive inner area of the tooth. An infection in the gum or the root of the tooth can cause pain and swelling. The pain is often made worse when you drink hot or cold beverages. It can also be worse when you bite on hard foods. Pain may spread from the tooth to your ear or the area of the jaw on the same side. Home care Follow these tips when caring for yourself at home: Don't have hot and cold foods and drinks. Your tooth may be sensitive to changes in temperature. Use toothpaste made for sensitive teeth. [place] gently up and down instead of sideways. Brushing sideways can wear away root surfaces if they are exposed. If your tooth is chipped or cracked, or if there is a large open cavity, put oil of cloves directly on the tooth to relieve pain. You can buy oil of cloves at [employer]. Some pharmacies carry an poqf-jbp-wtxhcli toothache kit. This contains a paste that you can put on the exposed tooth to make it less sensitive. Put a cold pack on your jaw over the sore area to help reduce pain. You may use coiu-afr-lfraxqb medicine to ease pain, unless your doctor prescribed another medicine. If you have chronic liver or kidney disease, talk with your healthcare provider before using acetaminophen or ibuprofen. Also talk with your provider if you ve had a stomach ulcer or GI bleeding. If you have signs of an infection, you will be given an antibiotic. Take it as directed. Follow-up care Follow up with your dentist, or as advised. Your pain may go away with the treatment given today. But only a dentist can fully look at and treat the cause of your pain. This will keep the pain from coming back. Call 911 Call 911 if any of these occur: Unusual drowsiness Headache or stiff neck Weakness or fainting Difficulty swallowing or breathing When to seek medical advice Call your health care provider right away if any of these occur: Your face becomes swollen or red Pain gets worse or spreads to your neck Fever of 100.4 F (38.0 C) or higher, or as directed by your healthcare provider Pus drains from the tooth [id number] [employer]. [address] [place] [address], [place] [address]. All rights reserved. This information is not intended as a substitute for professional medical care. Always follow your healthcare professional's instructions. Follow Up Care 03/24/2022 11:50:14 With:[facility] Address: [address] [place] [phone] When:2-4 days [facility] Emergency department Discharge summary 03-24-2022 Note Date & Type Note Facility 03-24-2022 Emergency department Discharge summary Discharge Instructions Thank you for allowing [facility] to assist you with your healthcare needs. The following is important discharge information regarding your hospital visit. Diagnosis from Today's Visit Dental pain What to Do Next Instructions from Your Care Team No qualifying data available. Post Acute Orders No qualifying data available. You Need to Schedule the Following Appointments Follow Up with [facility] When Within 2-4 days Where: [address] [place] [phone] Allergies Dilaudid Latex Medications Please ask your primary doctor or pharmacist before taking any other medication not listed, including over the counter drugs, herbal medications, vitamins and or supplements as they may interact with your home medications. What How Much When Instructions Last Dose New amoxicillin-clavulanate (Augmentin 500 mg-125 mg oral tablet) 1 tab(s) by mouth Every 12 hours Duration: 10 Days Printed Prescription Unchanged amoxicillin (amoxicillin 500 mg oral capsule) 1 cap by mouth Three (3) times a day Duration: 10 Days Unchanged busPIRone (busPIRone 10 mg oral tablet) 1 tab(s) by mouth Two (2) times a day Unchanged cetirizine (All Day Allergy 10 mg oral tablet) 1 tab(s) by mouth Once a day Unchanged escitalopram (escitalopram 20 mg oral tablet) 1 tab(s) by mouth Once a day Unchanged hydrOXYzine (hydrOXYzine pamoate 25 mg oral capsule) 1 cap by mouth Daily at bedtime as needed for for anxiety Unchanged levothyroxine (Synthroid 200 mcg (0.2 mg) oral tablet) 1 tab(s) by mouth Once a day Unchanged lisinopril (lisinopril 10 mg oral tablet) 1 tab(s) by mouth Once a day Please take this list to your next doctor s visit. Bring all medications you take, including over the counter medications, herbals and other supplements with you to your doctor s visit. Patients and families are reminded to discard old lists and to update any records with all medication providers or retail pharmacies. Education Materials Dental Pain A crack or cavity in a tooth can cause tooth pain. This is because the crack or cavity exposes the sensitive inner area of the tooth. An infection in the gum or the root of the tooth can cause pain and swelling. The pain is often made worse when you drink hot or cold beverages. It can also be worse when you bite on hard foods. Pain may spread from the tooth to your ear or the area of the jaw on the same side. Home care Follow these tips when caring for yourself at home: Don't have hot and cold foods and drinks. Your tooth may be sensitive to changes in temperature. Use toothpaste made for sensitive teeth. [place] gently up and down instead of sideways. Brushing sideways can wear away root surfaces if they are exposed. If your tooth is chipped or cracked, or if there is a large open cavity, put oil of cloves directly on the tooth to relieve pain. You can buy oil of cloves at [employer]. Some pharmacies carry an uqjx-tew-uolagyy toothache kit. This contains a paste that you can put on the exposed tooth to make it less sensitive. Put a cold pack on your jaw over the sore area to help reduce pain. You may use cgtq-riq-fojvkgo medicine to ease pain, unless your doctor prescribed another medicine. If you have chronic liver or kidney disease, talk with your healthcare provider before using acetaminophen or ibuprofen. Also talk with your provider if you ve had a stomach ulcer or GI bleeding. If you have signs of an infection, you will be given an antibiotic. Take it as directed. Follow-up care Follow up with your dentist, or as advised. Your pain may go away with the treatment given today. But only a dentist can fully look at and treat the cause of your pain. This will keep the pain from coming back. Call 911 Call 911 if any of these occur: Unusual drowsiness Headache or stiff neck Weakness or fainting Difficulty swallowing or breathing When to seek medical advice Call your health care provider right away if any of these occur: Your face becomes swollen or red Pain gets worse or spreads to your neck Fever of 100.4 F (38.0 C) or higher, or as directed by your healthcare provider Pus drains from the tooth [id number] [employer]. [address] [place] [address], [place] [address]. All rights reserved. This information is not intended as a substitute for professional medical care. Always follow your healthcare professional's instructions. Additional Information VACCINATE! IT SAVES LIVES! Members of the community who have not yet received the COVID-19 vaccine and would like to receive it can visit one of [facility] vaccine clinics. There are many vaccine clinic locations within the [facility]. For locations and available times, please visit [email or web address]. It is important to note that some COVID mobile vaccine clinics are held outdoors and may be canceled in rainy or stormy conditions. To learn more about pediatric vaccinations (ages 5-11), we invite you to visit the [facility] webpage. [email or web address] To learn more about the COVID-19 vaccine, we invite you to visit the [facility] website for a list of frequently asked questions. [email or web address] [email or web address] [facility] [employer] Patient Portal Access Instructions: Stay connected with your healthcare team and access your personal medical information anytime with the [facility] Patient Portal. If you would like a full copy of your medical records please contact the [facility] Medical Records Department Sunday through Sunday between 8a.m. and 4:30p.m. Please follow the directions below to access the portal: 1.Access the email account you provided upon registration to the [facility].2.Look for an invitation email from [facility].3.Open the email and access the invitation link: Accept Invitation to [facility]4.Fill in the required low to create your account. Sign into [email or web address] with your username and password that you created in the above steps to stay up to date. You can then view a summary of results, a summary of your visits, and the ability to download your summaries to your computer or send the information securely to a physician. Remember that your healthcare information is confidential, so carefully consider who you will allow to register on the [facility] Patient Portal for access to your information. You can also access the [facility] Patient Portal on the [employer] ciaran. Simply click on Health Records under Health Data and then click on the [employer] logo. HOW TO SAFELY DISPOSE OF PRESCRIPTION MEDICATIONS Please use one of the following methods to safely dispose of your unused medications. 1.Use a drug disposal kit: the drug disposal pouch allows you to safely discard your old and unused drugs. Ask your nurse to give you one when you are discharged.2.Visit a local take-back location: Many local pharmacies and police departments have programs that collect old and unwanted prescription drugs. Call your local pharmacy or go to http://[email or web address]/6E7Og7p to find one close to you.3.Make use of household items: Use cat litter or old coffee grounds to dispose medications if other options are not available. Mix your drugs with these household products, seal them in an airtight container and throw it into the garbage. Call [facility]: [phone] to be sure your drugs can be disposed of in this way. Some medicines may require a different approach.4.Never flush your medications down the toilet. IF YOU HAVE BEEN PRESCRIBED AN OPIOIDS FOR PAIN If you have been prescribed an opioid (such as hydrocodone, oxycodone or morphine), it is critical to understand the possible side effects and risks of opioid pain medications. Even when taken as directed, opioids can have several side effects including: Tolerance, meaning you might need to take more of a medication for the same pain relief. Nausea, vomiting and/or constipation. Sleepiness, dizziness, dry mouth, confusion, depression or itching. Physical dependence, meaning you have withdrawal symptoms when a medication is stopped ? this can develop within a few days. KNOW YOUR RESPONSIBILITIES It is important to know exactly how much and how often to take the opioid pain medications you are prescribed. Never take opioids in higher amounts or more often than prescribed. Do not combine opioids with alcohol or other drugs that cause drowsiness, such as benzodiazepines, also known as benzos, including diazepam and alprazolam, muscle relaxants or sleep aids. Never sell or share prescription opioids. This is illegal. Store opioids in a secure place and out of reach of others (including children, family, friends and visitors). The last page(s) of this document has been signed and retained as a CHART COPY Signatures Patient Education Materials Dental Pain Medication Leaflets My discharge plan and instructions have been reviewed and explained to me and I,NOREEN SHERWOOD understand my current condition and have read and understand these discharge instructions. I have received a written copy of the plan/instructions. If I have questions, I am aware that I should contact my doctor. Patient/Unit Educator Signature: Date/Time: Relationship to Patient: ____ Witness Name/Signature: Date/Time: [facility] Progress note 07-02-2021 Note Date & Type Note Facility 07-02-2021 Note HNO ID: [id number] Author: Yolanda Jeter PA-C Service: ? Author Type: Physician Sales Engagement Executive Type: Progress Notes Filed: 07/02/2021 3:51 PM Note Text: [facility] CLINIC NOTE Noreen Brady Tristan is a 31 year old y/o female who presents for neck and upper back pain. She woke up this morning at 6am and could not get out of bed due to back pain. She went back to sleep and got up at 9am. She states it look her several minutes to get out of bed due pain. She states that the pain starts between her shoulder blades and shoots up into her neck. When she flexes her head forward, it is painful but 10 times worse when she extends her back back to midline. She also reports burning pain down into her left shoulder and into her left upper arm. No weakness. No recent injuries No history of disc disease. She took 3 aleve around 11am- did not help. She has never had pain in this region previously. Current Outpatient Medications Medication Sig - levothyroxine (SYNTHROID) 25 mcg tablet Take 1 tablet by mouth once daily. Take on empty stomach. For thyroid. - levothyroxine (SYNTHROID) 200 mcg tablet Take 1 tablet by mouth once daily. Take on empty stomach. For Thyroid. - albuterol HFA (PROAIR HFA) 90 mcg/actuation inhaler Inhale 2 Puffs as instructed every 6 hours as needed. - levothyroxine (SYNTHROID) 200 mcg tablet Take 1 tablet by mouth once daily. Take on empty stomach. For thyroid. - IRON SUCROSE COMPLEX (IRON SUCROSE INTRAVEN.) Inject intravenously as directed. Twice weekly - levonorgestrel (MIRENA) 20 mcg/24 hr (5 years) IUD 1 Each by INTRAUTERINE route continuous. - folic acid 1 mg tablet Take 1 tablet by mouth once daily. - cyanocobalamin (VITAMIN B-12) 1,000 mcg tab Take 1 tablet by mouth once daily. - albuterol (PROVENTIL) 2.5 mg /3 mL (0.083 %) nebulizer solution Use 3 mL via nebulizer every 4 hours as needed for Wheezing/Shortness of Breath. Use over 5-15minutes. No current facility-administered medications for this visit. PAST MEDICAL HISTORY Diagnosis Date - Asthma, mild persistent 07/07/2014 - Dysthymic disorder Depression (non-psychotic) - History of thyroid cancer 06/03/2014 - Hypothyroid 06/03/2014 - Hypothyroidism - Iron deficiency anemia 07/07/2014 - Tobacco use 06/03/2014 PAST SURGICAL HISTORY Procedure Laterality Date - SKIN BX, 1 LESION 05/2006 Skin biopsy,LEFT LEG,ACH - THYROIDECTOMY 12/04/2011 Thyroid cancer - TUBAL LIGATION HX 12/22/2009 Social History Tobacco Use - Smoking status: Current Every Day Smoker Packs/day: 0.50 Years: 5.00 Pack years: 2.50 Types: Cigarettes - Smokeless tobacco: Never Used Substance Use Topics - Alcohol use: No Comment: occasionally - Drug use: No Physical Exam: BP (P) 140/87 Pulse (P) 66 Temp (P) 36.4 ?C (97.5 ?F) (Temporal) LMP 02/21/2015 SpO2 (P) 98% GEN: Alert, oriented, moderate amount of distress due to pain. NECK: Supple, No lymphadenopathy noted. Limited ROM due to verbalization of pain. Guarded. CHEST: BS clear bilat HEART: RRR, no added sounds noted EXT: No edema, clubbing or cyanosis noted SKIN: No rashes or lesions NEURO: No focal deficits. Strength intact. ASSESSMENT/PLAN: 1. Upper back pain - ICD9: 724.5, ICD10: M54.9 (primary diagnosis) - Referral to ER for higher level of care. Explained limitations of express care (no imaging, limited medications) 2. Neck pain - ICD9: 723.1, ICD10: M54.2 - as above. She is stable to go to ER by private car Yolanda Jeter PA-C [facility] Evaluation + Plan note Note Date & Type Note Facility Evaluation + Plan note No data available for this section [facility] Evaluation note Note Date & Type Note Facility documented in this encounter [facility] Work Phone: Summary Purpose Family History No Family History Records FoundNo Family History Records FoundNo Family History Records FoundNo Family History Records FoundNo Family History Records FoundNo Family History Records FoundNo Family History Records Found Advance Directives Documents on File Type Date Recorded Patient Unit Educator Expl anation ACP-Advance Directive ACP-Advance Directive 08/06/2017 3:11 PM ACP-Advance Directive 09/11/2017 7:53 AM ACP-Power of Competency Evaluated Nurse Aide Latest Code Status on File Code Status Date Activated Date Inactivated Comments Full Code 09/07/2017 9:15 AM 09/07/2017 2:53 PM Full Code 08/03/2017 9:01 AM 08/03/2017 2:58 PM Documents on File Type Date Recorded Patient Unit Educator Expl anation ACP-Advance Directive ACP-Power of Competency Evaluated Nurse Aide ACP-Advance Directive 09/11/2017 7:53 AM ACP-Advance Directive 08/06/2017 3:11 PM Documents on File Type Date Recorded Patient Unit Educator Expl anation ACP-Advance Directive 09/11/2017 7:53 AM ACP-Advance Directive 08/06/2017 3:11 PM Discharge Instructions * Instructions* Penelope Rubio PA-C - 09/02/2020 Continue compression and ice. Wear the sling only as needed, do not wear this 24 hours a day. Make sure you are moving her shoulder to prevent any stiffening of your shoulder. Continue prednisone for the next 5 days. Continue ibuprofen. Follow-up with orthopedics as needed. Return to the emergency department as needed. * Attachments The following attachments cannot be sent through Care Everywhere. * Elbow Bursitis (Stateless) documented in this encounter Assessments Diagnosis Left elbow pain- Primary Pain in joint, upper arm Elbow swelling, left Additional Source Comments INFORMATION SOURCE (unrecogn ized section and content) DATE CREATED AUTHOR AUTHOR'S ORGANIZ ATION 06/04/2018 [facility] DATE CREATED AUTHOR AUTHOR'S ORGANIZ ATION 10/04/2018 [facility] DATE CREATED AUTHOR AUTHOR'S ORGANIZ ATION 07/03/2021 [facility] DATE CREATED AUTHOR AUTHOR'S ORGANIZ ATION 09/13/2021 [facility] DATE CREATED AUTHOR AUTHOR'S ORGANIZ ATION 03/07/2022 [facility] DATE CREATED AUTHOR AUTHOR'S ORGANIZ ATION 03/28/2022 [facility] ([place]) Reason for Visit (unrecogniz ed section and content) Ordered Prescriptions (unrec ognized section and content) Care Teams (unrecognized sec tion and content) Dining Room Attendant Relationship Specialty Start Date End Date Mustaphad, Montcalm, DO [address] [address] PCP - General Family Medicine 07/25/21 Dining Room Attendant Relationship Specialty Start Date End Date Khalid, Montcalm, DO [address] [address] PCP - General Family Medicine 07/25/21 Dining Room Attendant Relationship Specialty Start Date End Date Khalid, La, DO [address] [address] PCP - General Family Medicine 07/25/21 Dining Room Attendant Relationship Specialty Start Date End Date Krystianalid, La, DO [address] [address] PCP - General Family Medicine 07/25/21 Dining Room Attendant Relationship Specialty Start Date End Date Khalid, La, DO [address] [place] [address] PCP - General Family Medicine 07/25/21 Dining Room Attendant Relationship Specialty Start Date End Date Khalid, Montcalm, DO [address] [place] [address] PCP - General Family Medicine 07/25/21 Dining Room Attendant Relationship Specialty Start Date End Date Khalid, Montcalm, DO [address] [place] [address] PCP - General Family Medicine 07/25/21 Dining Room Attendant Relationship Specialty Start Date End Date Khalid, La, DO [address] [place] [address] PCP - General Family Medicine 07/25/21 Dining Room Attendant Relationship Specialty Start Date End Date Khalid, Montcalm, DO [address] [place] [address] PCP - General Family Medicine 07/25/21 Dining Room Attendant Relationship Specialty Start Date End Date Khalid, Montcalm, DO [address] [place] [address] PCP - General Family Medicine 07/25/21 Dining Room Attendant Relationship Specialty Start Date End Date Khalid, Montcalm, DO [address] [place] [address] PCP - General Family Medicine 07/25/21 Dining Room Attendant Relationship Specialty Start Date End Date Khalid, La, DO [address] [place] [address] PCP - General Family Medicine 07/25/21 Dining Room Attendant Relationship Specialty Start Date End Date Deneen Adams PCP - General 10/31/06 07/06/14 Dalton Massey MD [address] [place] [address] PCP - General Family Medicine 07/07/14 04/11/21 Pcp, Kinza, CARLOS PCP - General 04/12/21 11/22/21 Care Team (unrecognized sect ion and content) Care Team Personnel Name: PHYSICIAN, NONE Position: AH Physician Member Role: Primary Care Physician Care Team Related Persons Name: NONE, Source Comments (unrecognize d section and content) In the event this informatio n is protected by the Federal Confidentiality of Alcohol and Drug Abuse Patient Records regulations: The Federal rules restrict any use of the information to criminally investigate or prosecute any alcohol or drug abuse patient.[facility] FOR RECORDS PERTAINING TO PATIENTS WHO ARE OR HAVE BEEN ENROLLED IN A CHEMICAL DEPENDENCY/SUBSTANCEABUSE PROGRAM, SOME INFORMATION MAY BE OMITTED. This clinical summary was aggregated from multiple sources. Caution should be exercised in using it in the provision of clinical care. This summary normalizes information from multiple sources, and as a consequence, information in this document may materially change the coding, format and clinical context of patient data. In addition, data may be omitted in some cases. CLINICAL DECISIONS SHOULD BE BASED ON THE PRIMARY CLINICAL RECORDS. [facility]. provides no warranty or guarantee of the accuracy or completeness of information in this document.
[2023-08-14 21:16] VITALS: BP 120/95; PULSE 60; RESP 12; TEMP 36.9; O2SAT 98
--- OUTSIDE RECORDS SUMMARY | 2023-08-14 21:23 | XMS RPT_ITS | CCD ---
Author Name Unknown Address [address] [place] [address] Organization [facility] Care Team Providers Care Marketing Summer Intern Name Role Phone NehaSpencer kaba Unavailable Unavailable Neha Spencer Unavailable Unavailable No Doctor Assigned, Nodr Unavailable Unavail able PROVIDER, UNKNOWN Referring Unavailable Job, Haris Primary Care Unavailable PROVIDER, UNKNOWN Attending Unavailable PROVIDER, UNKNOWN Referring Unavailable Monaca, Haris Primary Care Unavailable Rena Valero Attending Unavailable Unavailable Primary Care Provider Unavailabl e Khalid DO, La Primary Care Provider Khalid DO, [place] Primary Care Provider [phone] Khalid DO, La Primary Care Provider [phone] PROVIDER, UNKNOWN Referring Unavailable Sydney Hightower Attending Unavailable Khalid, La Primary Care Unavailable PROVIDER, UNKNOWN Referring Unavailable Tesuque, Elsy Attending Unavailable Khalid, [place] Primary Care Unavailable PROVIDER, UNKNOWN Referring Unavailable Isidro Thao Attending Unavailable Khalid, La Primary Care Unavailable Samson, Elsy Attending Unavailable PROVIDER, UNKNOWN Referring Unavailable Khalid, [place] Primary Care Unavailable PROVIDER, UNKNOWN Referring Unavailable Doris Aguilar Attending Unavailable Khalid, [place] Primary Care Unavailable Leonela Lockhart Attending Unavailable PROVIDER, UNKNOWN Referring Unavailable Khalid, La Primary Care Unavailable PROVIDER, UNKNOWN Referring Unavailable Leonela Lockhart Attending Unavailable Khalid, [place] Primary Care Unavailable Samson, Elsy Attending Unavailable PROVIDER, UNKNOWN Referring Unavailable Khalid, La Primary Care Unavailable Khalid, La Primary Care Unavailable Tesuque, Elsy Attending Unavailable PROVIDER, UNKNOWN Referring Unavailable Samson, Elsy Attending Unavailable PROVIDER, UNKNOWN Referring Unavailable Khalid, [place] Primary Care Unavailable Khalid, La Primary Care Unavailable PROVIDER, UNKNOWN Referring Unavailable Shannan Perry Attending Unavailable Khalid, [place] Primary Care Unavailable Lyla Andrade Attending Unavailable PROVIDER, UNKNOWN Referring Unavailable Samson, Elsy Attending Unavailable Khalid, La Primary Care Unavailable PROVIDER, UNKNOWN Referring Unavailable Samson, Elsy Attending Unavailable PROVIDER, UNKNOWN Referring Unavailable Khalid, [place] Primary Care Unavailable PROVIDER, UNKNOWN Referring Unavailable Panchito Joaquin Attending Unavailable Khalid, [place] Primary Care Unavailable Tesuque, Elsy Attending Unavailable Khalid, [place] Primary Care Unavailable PROVIDER, UNKNOWN Referring Unavailable Tesuque, Elsy Attending Unavailable PROVIDER, UNKNOWN Referring Unavailable Khalid, [place] Primary Care Unavailable Tesuque, Elsy Attending Unavailable Khalid, La Primary Care Unavailable PROVIDER, UNKNOWN Referring Unavailable Tesuque, Elsy Attending Unavailable PROVIDER, UNKNOWN Referring Unavailable Khalid, La Primary Care Unavailable Tesuque, Elsy Attending Unavailable PROVIDER, UNKNOWN Referring Unavailable Khalid, [place] Primary Care Unavailable PROVIDER, UNKNOWN Referring Unavailable Leonela Lockhart Attending Unavailable Khalid, [place] Primary Care Unavailable Tesuque, Elsy Attending Unavailable PROVIDER, UNKNOWN Referring Unavailable Khalid, La Primary Care Unavailable Samson, Elsy Attending Unavailable PROVIDER, UNKNOWN Referring Unavailable Khalid, La Primary Care Unavailable Samson, Elsy Attending Unavailable PROVIDER, UNKNOWN Referring Unavailable Khalid, La Primary Care Unavailable Tesuque, Elsy Attending Unavailable PROVIDER, UNKNOWN Referring Unavailable Khalid, [place] Primary Care Unavailable Khalid, La Primary Care Unavailable PROVIDER, UNKNOWN Referring Unavailable Brandi Fajardo Attending Unavailable Khalid, La Primary Care Unavailable Tesuque, Elsy Attending Unavailable PROVIDER, UNKNOWN Referring Unavailable Khalid, La Primary Care Unavailable Tesuque, Elsy Attending Unavailable PROVIDER, UNKNOWN Referring Unavailable PROVIDER, UNKNOWN Referring Unavailable Brandi Fajardo Attending Unavailable Khalid, La Primary Care Unavailable PHYSICIAN, NONE Primary Care Physician Unavailab monica CARMEN MD, LUCAS Pollock Attending Unavail able PHYSICIAN, NONE Primary Care Unavailable Deneen Adams Primary Care Provider Dalton Massey MD Primary Care Provider Pcp ICHTHYOLOGIST, No Primary Care Provider Unavailvarun e Allergies Allergy Classification Reported Allergen(s) Allergy Type Date of Onset Reaction(s) Facility (2 sources) HYDROmorphone; Translations: [Dilaudid] Drug Allergy [facility] Repository (20 sources) Latex; Translations: [Latex] Propensity to adverse reactions to drug (disorder) 4 Hives [facility] Repository (20 sources) HYDROmorphone Drug [...] Body height 157 cm LUCAS CARMEN MD [facility] 03-24-2022 11:58-0400 Body temperature 98.24 [degF] LUCAS CARMEN MD [facility] 03-24-2022 11:58-0400 Body weight 77 kg LUCAS CARMEN MD [facility] 03-24-2022 11:58-0400 Diastolic blood pressure 105 mm[Hg] LUCAS CARMEN MD [facility] 03-24-2022 11:58-0400 Heart rate 84 /min LUCAS CARMEN MD [facility] 03-24-2022 11:58-0400 Respiratory rate 16 /min LUCAS CARMEN MD [facility] 03-24-2022 11:58-0400 Systolic blood pressure 144 mm[Hg] LUCAS CARMEN MD [facility] 09-02-2020 16:36-0500 BMI (Body Mass Index) [...] Emergency department patient visit LUCAS CARMEN MD [facility] Start: 02-23-2022 ambulatory [facility] Start: 02-23-2022 End: 02-23-2022 Subsequent hospital visit by physician La Allan DO Work Phone: [facility] USE ONLY Start: 02-17-2022 ambulatory [facility] Start: 02-15-2022 ambulatory Elsy Samson [facility] Start: 02-15-2022 End: 02-15-2022 Subsequent hospital visit by physician La Allan DO Work Phone: [facility] USE ONLY Start: 02-08-2022 ambulatory Elsy Samson [facility] Start: 02-08-2022 End: 02-08-2022 Subsequent hospital visit by physician La Allan DO Work Phone: [facility] USE ONLY Start: 01-30-[address] [facility] Start: 01-30-2022 End: 01-30-2022 Subsequent hospital visit by physician Panchito Joaquin MD Work Phone: [facility] USE ONLY Start: 01-[facility]-2022 [facility] Start: 01-25-2022 End: 01-25-2022 Subsequent hospital visit by physician La Allan DO Work Phone: [facility] USE ONLY Start: 01-20-2022 ambulatory Elsy Tesuque [facility] Start: 01-19-2022 [facility] Start: [facility]-06-[facility]22 [facility] Start: 01-06-2022 End: 01-06-2022 Subsequent hospital visit by physician La Allan DO Work Phone: [facility] USE ONLY Start: [facility] Start: 12-16-2021 End: 12-16-2021 Subsequent hospital visit by physician La Allan DO Work Phone: [facility] USE ONLY Start: [facility] Start: 12-09-2021 End: 12-09-2021 Subsequent hospital visit by physician La Allan DO Work Phone: [facility] USE ONLY Start: 12-02-2021 [facility] Start: 12-02-2021 End: 12-02-2021 Subsequent hospital visit by physician La Allan DO Work Phone: [facility] USE ONLY Start: 11-25-2021 [facility] Start: 11-25-2021 End: 11-25-2021 Subsequent hospital visit by physician La Allan DO Work Phone: [facility] USE ONLY Start: 11-10-2021 ambulatory UNKNOWN PROVIDER [facility] Start: 11-01-2021 ambulatory Leonela Hartford [facility] Start: 11-01-2021 End: 11-01-2021 Subsequent hospital visit by physician Leonela Lockhart MD Work Phone: [facility] ONLY Start: 10-28-[facility] Start: 10-28-2021 End: 10-28-2021 Subsequent hospital visit by physician La Allan DO Work Phone: [facility] ONLY Start: 10-17-2021 [facility] Start: 10-17-2021 End: 10-17-2021 Subsequent hospital visit by physician La Allan DO Work Phone: [facility] ONLY Start: 10-11-2021 [facility] Start: 10-10-2021 [facility] Start: 10-03-2021 ambulatory UNKNOWN PROVIDER [facility] Start: 10-03-2021 End: 10-03-2021 Subsequent hospital visit [...] Lockhart MD Work Phone: Start: 08-28-2005 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 Start: 01-30-2023 Depression Monitoring Depression Mon itoring [facility] Start: 12-16-2022 Depression Monitoring Depression Mon itoring [facility] Start: 12-02-2022 DTaP/Tdap/Td vaccine (2 - Td or Tdap) DTaP/Tdap/Td vaccine (2 - Td or Tdap) [facility] Start: 12-02-2022 DTaP/Tdap/Td vaccine (2 - Td) DTaP/Tdap/Td [facility] (2 - Td) [facility] Work Phone: Start: 12-02-2022 Urine microalbumin profile DTaP,Tdap,Td Vaccine (2 - Td or Tdap) [facility] Start: 10-11-2022 Depression Monitoring Depression Mon itoring [facility] Start: 10-03-2022 Creatinine measurement [facility] Start: 10-03-2022 Potassium [Moles/vol ume] in Serum or Plasma Potassium [facility] Start: 10-03-2022 Potassium monitoring Potassium monit oring [facility] Start: 10-03-2022 Thyroid stimulating hormone measurement [facility] Start: 08-30-2022 Influenza vaccination [facility] Immunizations Immunization Date Immunization Notes Care Provider London evans 07-17-2017 hepatitis A and hepatitis B vaccine [facility] Work Phone: 06-06-2017 hepatitis A and hepatitis B vaccine [facility] 07-07-2014 Influenza Vaccine, unspecified formulation [facility] 07-07-2014 influenza virus vaccine, unspecified formulation Leonela Lockhart MD Work Phone: [facility] Work Phone: 07-07-2014 pneumococcal conjuga te vaccine, 13 valent [facility] Work Phone: 12-02-2012 tetanus toxoid, redu brenda diphtheria toxoid, and acellular pertussis vaccine, adsorbed [facility] Work Phone: Payers Date Payer Category Payer Private Health Insurance [id number] 2018 Self-pay 1988 Unknown [id number] 2.16.84 [id number] 1988 Unknown [id number] 2.16.8 40.1.781306.3.579.2. 1988 Unknown [id number] 2.16.8 40.1.290756.3.579.2. 1988 Unknown [id number] 2.16. 840.1.545951.3.579.2. 1988 Unknown [id number] 2.16. 840.1.463048.3.579.2.8 1988 Unknown [id number] 2.16. 840.1.078876.3.579.2. 1988 Unknown [id number] 2.16. 840.1.387652.3.579.2. 1988 Unknown [id number] 2.16. 840.1.478245.3.579.2. 1988 Unknown [id number] 2.16. 840.1.855840.3.579.2. 1988 Unknown [id number] 2.16. 840.1.191123.3.579.2. 1988 Unknown [id number] 2.16. 840.1.345393.3.579.2 1988 Unknown [id number] 2.16. 840.1.142980.3.579.2 1988 Unknown [id number] 2.16. 840.1.369151.3.579.2 1988 Unknown [id number] 2.16 840.1.686003.3.579.2 1988 Unknown [id number] 2.16. 840.1.227096.3.579.2 1988 Unknown [id number] 2.16. 840.1.916069.3.579.2. 1988 Unknown [id number] 2.16. 840.1.481368.3.579.2 1988 Unknown [id number] 2.16. 840.1.778205.3.579.2 1988 Unknown [id number] 2.16. 840.1.040567.3.579.2 1988 Unknown [id number] 2.16. 840.1.963260.3.579.2 1988 Unknown [id number] 2.16. 840.1.377797.3.579.2 1988 Unknown [id number] 2.16. 840.1.884344.3.579.2.668 1988 Unknown [id number] 2.16. 840.1.854476.3.579.2. 1988 Unknown [id number] 2.16. 840.1.423455.3.579.2.8 1988 Unknown [id number] 2.16. 840.1.717760.3.579.2. 1988 Unknown [id number] 2.16. 840.1.811749.3.579.2. 1988 Unknown [id number] 2.16. 840.1.303316.3.579.2. 1988 Unknown [id number] 2.16. 840.1.750430.3.579.2. 1988 Unknown [id number] 2.16. 840.1.645769.3.579.2. 1988 Unknown [id number] 2.16. 840.1.659509.3.579.2. 1988 Unknown [id number] 2.16. 840.1.577882.3.579.2. 1988 Unknown [id number] 2.16. 840.1.312959.3.579.2. 1988 Unknown [id number] 2.16.8 40.1.822799.3.579.2.627 Private Health Insurance Social History Date Type Detail Facility Start: 09-02-2020 End: 01-30-2022 Tobacco smoking status GAIS Current every day smoker [facility] Phone: History of tobacco use Cigarette Smoker [facility] Work Phone: Start: 09-02-2020 End: 02-08-2022 Cigarettes smoked current (pack per day) - Reported [facility] Phone: Start: 09-02-2020 End: 01-30-2022 Tobacco use and exposure Never used [facility] Work Phone: Start: 09-02-2020 End: 02-20-2022 Alcohol intake Ex-drinker (finding) [facility] Work Phone: Start: 10-14-2018 End: 01-30-2022 Tobacco Comment 1ppd [facility] Work Phone: Start: 05-24-2017 Alcohol Comment social [facility] Work Phone: Start: 1990 Sex Assigned At Not on file [facility] Work Phone: Start: 06-02-2021 End: 11-28-2021 Exposure to SARS-CoV-2 (event) Not sure [facility] Work Phone: Start: 1990 Sex Assigned At Female [facility] Start: 08-24-2021 History SDOH Alcohol Frequency 1 [facility] Work Phone: Start: 08-24-2021 History SDOH Social Connections Get Together 2 [facility] Work Phone: Start: 08-24-2021 History SDOH Social Connections Meetings 3 [facility] Work Phone: Start: 08-24-2021 History SDOH Social Connections Living 8 [facility] Work Phone: Start: 08-24-2021 History SDOH Physica l Activity DPW 0 [facility] Work Phone: Start: 08-24-2021 History SDOH Stress 5 [facility] Work Phone: Start: 03-24-2022 Tobacco smoking status Light t obacco smoker (finding) [facility] Sex Assigned At Sex [facility] Tobacco smoking stat us GAIS Tobacco smoking consumption unknown [facility] Start: 02-08-2022 Tobacco use panel [facility] Goals Date Patient Goal Desired Activity /State Functional Status Date Assessment Result Facility 03-24-2022 Functional Status Standard Safet y ID band on, Allergy Band on, Call device within reach, Bed in low position, Wheels locked [facility] Mental Status Date Assessment Result Facility 03-24-2022 Mental Status Orientation Oriented x 4 [facility] Discharge instructions 03-24-2022 Note Date & [...] temperature. Use toothpaste made for sensitive teeth. [place] gently up and down instead of sideways. Brushing sideways can wear away root surfaces if they are exposed. If your tooth is chipped or cracked, or if there is a large open cavity, put oil of cloves directly on the tooth to relieve pain. You can buy oil of cloves at [employer]. Some pharmacies carry an kepl-mvb-poryihz toothache kit. This contains a paste that you can put on the exposed tooth to make it less sensitive. Put a cold pack on your jaw over the sore area to help reduce pain. You may use izln-esm-zjgqgab medicine to ease pain, unless your doctor [...] healthcare provider Pus drains from the tooth [phone] [employer]. [address] [place] [address], [place] [address]. All rights reserved. This information is not intended as a substitute for professional medical care. Always follow your healthcare professional's instructions. Follow Up Care 03/24/2022 11:50:14 With:[facility] Address: [address] [place] [phone] When:2-4 days [facility] Emergency department Discharge summary 03-24-2022 Note Date & Type Note Facility 03-24-2022 Emergency department Discharge summary Discharge Instructions Thank you for allowing [facility] to assist you with your healthcare needs. The following is important discharge information regarding your hospital visit. Diagnosis from Today's Visit Dental pain What to Do Next Instructions from Your Care Team No qualifying data available. Post Acute Orders No qualifying data available. You Need to Schedule the Following Appointments Follow Up with [facility] When Within 2-4 days Where: [address] [place] [phone] Allergies Dilaudid Latex Medications Please ask your [...] temperature. Use toothpaste made for sensitive teeth. [place] gently up and down instead of sideways. Brushing sideways can wear away root surfaces if they are exposed. If your tooth is chipped or cracked, or if there is a large open cavity, put oil of cloves directly on the tooth to relieve pain. You can buy oil of cloves at [employer]. Some pharmacies carry an znny-stu-lrdoger toothache kit. This contains a paste that you can put on the exposed tooth to make it less sensitive. Put a cold pack on your jaw over the sore area to help reduce pain. You may use qngk-vga-hjghupn medicine to ease pain, unless your doctor [...] healthcare provider Pus drains from the tooth [phone] [employer]. [address] [place] [address], [place] [address]. All rights reserved. This information is not intended as a substitute for professional medical care. Always follow your healthcare professional's instructions. Additional Information VACCINATE! IT SAVES LIVES! Members of the community who have not yet received the COVID-19 vaccine and would like to receive it can visit one of [facility] vaccine clinics. There are many vaccine clinic locations within the [facility]. For locations and available times, please visit [email or web address]. It is important to note that some COVID mobile vaccine clinics are held outdoors and may be canceled in rainy or stormy conditions. To learn more about pediatric vaccinations (ages 5-11), we invite you to visit the [facility] webpage. [email or web address] To learn more about the COVID-19 vaccine, we invite you to visit the [facility] website for a list of frequently asked questions. [email or web address] quently_[email or web address] [facility] Patient Portal Access Instructions: Stay connected with your healthcare team and access your personal medical information anytime with the [email or web address] Patient Portal. If you would like a full copy of your medical records please contact the [facility] Medical Records Department Sunday through Sunday between 8a.m. and 4:30p.m. Please follow the directions below to access the portal: 1.Access the email account you provided upon registration to the [facility].2.Look for an invitation email from [facility].3.Open the email and access the invitation link: Accept Invitation to [email or web address].Fill in the required low to create your [...] you will allow to register on the [facility] Patient Portal for access to your information. You can also access the [facility] Patient Portal on the Mar[employer] ciaran. Simply click on Health Records under Health Data and then click on the [employer] logo. HOW TO SAFELY DISPOSE OF PRESCRIPTION [...] Call your local pharmacy or go to [email or web address] to find one close to you.3.Make use of household items: Use cat litter or old coffee grounds to dispose medications if other options are not available. Mix your drugs with these household products, seal them in an airtight container and throw it into the garbage. Call [facility]: [phone] to be sure your drugs can be [...] aware that I should contact my doctor. 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 Author Type: Physician Fund Controller Type: Progress Notes Filed: 07/02/2021 3:51 PM Note Text: [facility] NOTE Noreen Brady Tristan is [...] ER by private car Yolanda Jeter PA-C [facility] Evaluation + Plan note Note Date & Type Note Facility Evaluation + Plan note No data available for this section [facility] Evaluation note Note Date & Type Note Facility documented in this encounter [facility] Work Phone: Summary Purpose Family History No Family History Records FoundNo Family History Records FoundNo Family History Records FoundNo Family History Records FoundNo Family History Records FoundNo Family History Records FoundNo Family History Records Found Advance Directives Documents on File Type Date Recorded Patient Semiconductor Lab Technician Expl anation ACP-Advance Directive ACP-Advance Directive 08/06/2017 3:11 PM ACP-Advance Directive 09/11/2017 7:53 AM ACP-Power of Regulatory Compliance Engineer Latest Code Status on File Code Status Date Activated Date Inactivated Comments Full Code 09/07/2017 9:15 AM 09/07/2017 2:53 PM Full Code 08/03/2017 9:01 AM 08/03/2017 2:58 PM Documents on File Type Date Recorded Patient Semiconductor Lab Technician Expl anation ACP-Advance Directive ACP-Power of Regulatory Compliance Engineer ACP-Advance Directive 09/11/2017 7:53 AM ACP-Advance Directive 08/06/2017 3:11 PM Documents on File Type Date Recorded Patient Semiconductor Lab Technician Expl anation ACP-Advance Directive 09/11/2017 7:53 AM [...] sent through Care Everywhere. * Elbow Bursitis (Solomon Islander) documented in this encounter Assessments Diagnosis Left elbow pain- Primary Pain in joint, upper arm Elbow swelling, left Additional Source Comments INFORMATION SOURCE (unrecogn ized section and content) DATE CREATED AUTHOR AUTHOR'S ORGANIZ ATION 06/04/2018 [facility] DATE CREATED AUTHOR AUTHOR'S ORGANIZ ATION 10/04/2018 [facility] [employer] DATE CREATED AUTHOR AUTHOR'S ORGANIZ ATION 07/03/2021 [facility] DATE CREATED AUTHOR AUTHOR'S ORGANIZ ATION 09/13/2021 [facility] DATE CREATED AUTHOR AUTHOR'S ORGANIZ ATION 03/07/2022 [employer] DATE CREATED AUTHOR AUTHOR'S ORGANIZ ATION 03/28/2022 [facility] ([place]) Reason for Visit (unrecogniz ed section and content) Ordered Prescriptions (unrec ognized section and content) Care Teams (unrecognized sec tion and content) Marketing Summer Intern Relationship Specialty Start Date End Date Mustaphad, [place], DO [address] [address] PCP - General Family Medicine 07/25/21 Marketing Summer Intern Relationship Specialty Start Date End Date Khalid, [place], DO [address] [address] PCP - General Family Medicine 07/25/21 Marketing Summer Intern Relationship Specialty Start Date End Date Khalid, La, DO [address] [address] PCP - General Family Medicine 07/25/21 Marketing Summer Intern Relationship Specialty Start Date End Date Krystianalid, La, DO [address] [address] PCP - General Family Medicine 07/25/21 Marketing Summer Intern Relationship Specialty Start Date End Date Khalid, La, DO [address] [place] [address] PCP - General Family Medicine 07/25/21 Marketing Summer Intern Relationship Specialty Start Date End Date Khalid, [place], DO [address] [place] [address] PCP - General Family Medicine 07/25/21 Marketing Summer Intern Relationship Specialty Start Date End Date Khalid, [place], DO [address] [place] [address] PCP - General Family Medicine 07/25/21 Marketing Summer Intern Relationship Specialty Start Date End Date Khalid, La, DO [address] [place] [address] PCP - General Family Medicine 07/25/21 Marketing Summer Intern Relationship Specialty Start Date End Date Khalid, [place], DO [address] [place] [address] PCP - General Family Medicine 07/25/21 Marketing Summer Intern Relationship Specialty Start Date End Date Khalid, [place], DO [address] [place] [address] PCP - General Family Medicine 07/25/21 Marketing Summer Intern Relationship Specialty Start Date End Date Khalid, [place], DO [address] [place] [address] PCP - General Family Medicine 07/25/21 Marketing Summer Intern Relationship Specialty Start Date End Date Khalid, La, DO [address] [place] [address] PCP - General Family Medicine 07/25/21 Marketing Summer Intern Relationship Specialty Start Date End Date Deneen Adams PCP - General 10/31/06 07/06/14 Dalton Massey MD [address] [place] [address] PCP - General Family Medicine 07/07/14 04/11/21 [...] or prosecute any alcohol or drug abuse patient.[facility] FOR RECORDS PERTAINING TO PATIENTS WHO ARE [...] BE BASED ON THE PRIMARY CLINICAL RECORDS. [employer] [facility]. provides no warranty or guarantee of the accuracy or completeness of information in this document.
[2023-08-14 22:27] VITALS: RESP 15
[2023-08-14 22:34] VITALS: BMI 31.8
[2023-08-14 22:39] VITALS: BP 120/89; PULSE 61; RESP 17; TEMP 36.8; O2SAT 99
[2023-08-15] VITALS (12 sets, daily range): BP systolic 97–134; BP diastolic 73–97; PULSE 51–73; RESP 15–18; TEMP 36.3–37.2; O2SAT 94–100; BMI 31.8
[2023-08-15] MEDS: 0.9% Normal Saline (1000mL) 1,000 ML 150 ML IV ×2 (01:41→11:14)
--- NOTE | 2023-08-15 06:25 | HP.PCM_ITS ---
HPI - General General Date of Admission: 08/14/23 Date of Service: 08/14/23 Chief Complaint: positive test HPI Narrative GOLDEN SHERWOOD, is a 33 F who presents with positive (x3) test after tubal ligation 14 years ago. Also she reports some waxing and waning left lower quadrant pain that started yesterday. This pain is very mild and did not prompt ED visit. She didn't ask for pain meds in ED. Her last menstrual period was on July 08. [facility] Medical History (Updated 08/15/23 @ 06:[address] Narcisa Vargas MD) Anxiety Asthma Cancer COVID-19 Cubital tunnel syndrome on left Depression Easy bruising HTN (hypertension) Hypoparathyroidism after surgical removal of thyroid gland Hypothyroid Low iron Marijuana use PTSD (post-traumatic stress disorder) Restless legs Smoker Thyroid disease Wears glasses Home Medications lisinopril 10 mg tablet 10 mg PO DAILY 03/23/22 [History Last Taken 01/24/23] buspirone 10 mg tablet 10 mg PO DAILY 06/07/22 [History Last Taken Unknown] Allergy/AdvReac Type Severity Reaction Status Date / Time hydromorphone [From Dilaudid] Allergy Hives Verified 08/14/23 17:13 latex Allergy Hives Verified 08/14/23 17:13 soap Allergy Hives Verified 08/14/23 17:13 Surgical History (Updated 08/15/23 @ 05:47 by Ashley Roberson) H/O elbow surgery History of carpal tunnel surgery of left wrist History of carpal tunnel surgery of right wrist History of tubal ligation (~2009) Social History Smoking Status: Current every day smoker tobacco type: cigarettes alcohol intake: never Vital Signs Vital Signs Vital Signs: 08/14/23 17:11 08/14/23 21:16 08/14/23 21:16 Temperature 97.8 F 98.5 F Temperature Source Temporal Pulse Rate 96 60 60 Respiratory Rate 16 12 12 Respiratory Effort Respiratory Depth Respiratory Pattern Blood Pressure 129/94 H 120/95 H 120/95 H Blood Pressure Mean 105 103 103 Blood Pressure Source Blood Pressure Position Blood Pressure Location Pulse Ox 100 98 98 Oxygen Delivery Method Room Air 08/14/23 22:39 08/14/23 22:27 08/15/23 04:22 Temperature 98.2 F Temperature Source Oral Pulse Rate 61 Respiratory Rate 17 15 15 Respiratory Effort Normal Non-Labored Normal Non-Labored Respiratory Depth Normal Normal Respiratory Pattern Normal Normal Blood Pressure 120/89 H Blood Pressure Mean 99 Blood Pressure Source Monitor Blood Pressure Position Semi-Fowlers Blood Pressure Location Right Arm Pulse Ox 99 94 Oxygen Delivery Method Room Air Room Air Room Air 08/15/23 04:42 08/15/23 05:49 Temperature 97.7 F L 97.8 F Temperature Source Oral Oral Pulse Rate 58 L 55 L Respiratory Rate 15 15 Respiratory Effort Respiratory Depth Respiratory Pattern Blood Pressure 97/78 97/78 Blood Pressure Mean 84 84 Blood Pressure Source Monitor Manual Blood Pressure Position Semi-Fowlers Sitting Blood Pressure Location Right Arm Right Arm Pulse Ox 95 95 Oxygen Delivery Method Room Air Room Air Weight Weight: 174 lb 2.643 oz Body Mass Index (BMI) 31.8 Physical Exam Const alert and oriented x3 Resp normal respiratory effort GI soft to palpation, non-tender and non-distended Extremity no calf tenderness Neuro CN's II-XII intact bilaterally Results Lab / Micro Data Attestation: I reviewed the patient's lab results. 08/14/23 17:55 08/14/23 17:55 Labs: Laboratory Results - last 24 hr 08/14/23 17:55: WBC 4.0 L, RBC 3.27 L, Hgb 9.8 L, Hct 30.1 L, MCV 92.0, MCH 30.0, MCHC 32.6, RDW Std Deviation 47.8 H, RDW Coeff of [place] 14.1, Plt Count 211, MPV 9.8, Immature Gran % (Auto) 0.200, Neut % (Auto) 33.7 L, Lymph % (Auto) 55.2 H, [place] % (Auto) 8.0, Eos % (Auto) 2.2, Baso % (Auto) 0.7, Absolute Neuts (auto) 1.4 L, Absolute Lymphs (auto) 2.22, Nucleated RBC % 0, Differential Comment SCANNED, Atypical Lymphocytes RARE, Sodium 137, Potassium 3.3 L, Chloride 105, Carbon Dioxide 27.0, Anion Gap 5, BUN 8, Creatinine 1.09 H, Estim Creat Clear Calc 71.15, Est GFR (MDRD) Af Amer 73, Est GFR (MDRD) Non-Af 61, BUN/Creatinine Ratio 7.3 L, Glucose 82, Calcium 8.5, HCG, Quant 419 H, Blood Type AB POSITIVE Imaging Radiology Impression Obstetrics Ultrasound 08/14/23 17:43 IMPRESSION: No evidence for intrauterine gestation No adnexal mass is seen however there is a large amount of complex fluid and possibility of ruptured hemorrhagic cyst or ectopic cannot be excluded. Clinical correlation recommended and follow-up studies if indicated Electronically Signed: Dalton Gomez MD at 19:56 EST , ADDENDUM: 08/14/232010 IMPRESSION: No evidence for intrauterine gestation No adnexal mass is seen however there is a large amount of complex fluid and possibility of ruptured hemorrhagic cyst or ectopic cannot be excluded. Clinical correlation recommended and follow-up studies if indicated N.B. : The above Results were Read Back by Dalton Gomez MD to Jill Fong MD, and understanding confirmed on 08/14/2023 20:04:55 (ET). Electronically Signed: Dalton Gomez MD at 19:56 EST , Assessment & Plan Assessment/Plan (1) Positive test: PLAN: 33yo female s/p tubal sterilization with LLQ pain & positive test (2) Left lower quadrant abdominal pain: PLAN: Plan Patient admitted for observation overnight. She continues to have a benign abdominal exam and not require pain medication. Pelvic US shows some free fluid but is otherwise normal. Await AM labs. Plan for likely discharge home with close follow up in [facility] office. Plan discussed with patient & all questions answered. Low potassium - recommend high potassium foods on discharge
--- NOTE | 2023-08-15 06:33 | DCINST_ITS ---
Discharge Instructions Diet Discharge Diet: No restrictions Activity Discharge Activity: Return to Normal Activity May resume sexual activity in: 4 weeks Weight Bearing Status: Weight bearing as tolerated Dressing / Incision Call your doctor if you observe: Fever of 101 or Higher, Coldness, Increased Pain, Change in Color, Inability to urinate, Using more than 1 pad per hour, C hest pain, Increased palpitations (irregular heartbeat), Calf discomfort and Uncontrolled pain Follow Up Care Please Follow Up With: Narcisa Vargas MD When: As directed Test Results: Test results from this visit will be discussed in further detail at your follow- up appointment, if applicable. Discharge Plan Admission Admit Date/Time: 08/14/23 20:51 Primary Reason for Your Visit: Positive test Attending Provider: Narcisa Vargas Primary Care Provider: Care PhysicianKinza Primary Discharge Orders/Prescriptions Prescriptions: No Action lisinopril 10 mg tablet 10 mg PO DAILY Patient Comments: take 1 tablet by mouth once daily; not taking because of insurance buspirone 10 mg tablet 10 mg PO DAILY Patient Comments: take 1 tablet by mouth IN THE MORNING and at bedtime; not taking because of insurance Referrals / Follow Up: Care Physician,Kinza Primary [Primary Care Provider] - Disposition Disposition (needs filled in before D/C Order can be placed): Home, Self Care
[2023-08-15 08:12] LABS: Absolute Lymphocyte Count 2.47 X10^3/uL (0.83-4.51); Absolute Neutrophil Count 1.6 X10^3/uL (2.0-7.7); Basophil# 0.02 X10^3/uL; Basophil% 0.4 % (0-1); Eosinophil# 0.16 X10^3/uL; Eosinophils% 3.5 % (0-5); Hematocrit 28.6 % (37-47); Hemoglobin 9.5 g/dL (12.0-15.0); Lymphocyte # 2.47 X10^3/ul (0.83-4.51); Lymphocyte % 53.3 % (19-41); Mean Corp Hgb Conc 33.2 g/dL (32-36); Mean Corpuscular Hgb 30.7 pg (27.0-32.0); Mean Corpuscular Volume 92.6 fL (81-99); Mean Platelet Vol. 9.8 fl (6.2-12.0); Monocyte# 0.37 X10^3/uL; NRBC Flagged by Analyzer 0 % (0-5); Neutrophil % 34.6 % (47-70); POSITIVE MORPHOLOGY YES; Platelet Count 197 K/mm3 (150-450); RBC Distribution Width CV 14.3 % (11.6-14.6); RBC Distribution Width SD 48.5 fl (35.1-43.9); Red Blood Count 3.09 M/mm3 (4.2-5.4); White Blood Count 4.6 K/mm3 (4.4-11.0)
--- NOTE | 2023-08-15 08:16 | PCM.PN.BLA ---
Progress Note I reviewed case with Dr. Vargas this morning. Reviewed Images personally- Large amount of fluid in pelvis. I personally called the patient over the phone this morning - pt is rating pain 5/10- reports is getting more uncomfortable this morning. I discussed with patient- likely ruptured ectopic and recommendation for Diagnostic laparoscopy with removal of both tubes and evacuation of hemoperitoneum. we discussed all risks and benefits of surgery including but not limited to bleeding, infection, injury to pelvic structures including bowel, ureters, bladder. I made arrangements with OR team. Repeat labs this morning. Plan for OR this morning. Pt has been NPO.
[2023-08-15 08:33] LABS: Differential Indicated SCAN CRITERIA MET
[2023-08-15 08:43] LABS: hCG Titer Quant., Serum 414 mIU/mL (1-3)
[2023-08-15] MEDS: Lactated Ringers 1,000 ML 15 ML IV (08:50)
--- NOTE | 2023-08-15 09:00 | FAL_PTH ---
PATHOLOGY RESULTS PATIENT: GOLDEN SHERWOOD LOC: MS3 U#:[id number] AGE/SX: 33/F ROOM: UT318 RE08/14/[address]: Dr. Narcisa Vargas MD : 1990 BED: 1 DIS: 08/15/2023 SPEC #: [id number] RECD: 08/15/23 11:08 STATUS: FAWAD MEDELLIN #: [id number] BILLY: 08/15/23 09:[address]: Kelly Leon DEPT: SURGICAL PATHOLOGY RECD BY: Karena Rutherford ENTERED: 08/15/23 11:09 SP TYPE: ECTOPIC OTHR DR: Dr. Narcisa Vargas MD No Primary Care Phys Tissues: ECTOPIC PREG Procedures: Surgery Specimen Level IV Comments: @ Ordering doctor for JOHANNA edited from to @ by FRANCOISE at 08/16/23 08 @ Submitting doctor edited from to DR.DMCINT Kunz by FRANCOISE at 08/16/2331 HEADER OPERATION: Laparoscopic removal ectopic , salpingectomy PRE-OP DIAGNOSIS: Ruptured ectopic TISSUE SUBMITTED: Bilateral fallopian tubes and ectopic MICROSCOPIC DIAGNOSIS Bilateral fallopian tubes, salpingectomy: One fallopian tube with benign paratubal cysts. Other fallopian tube with intraluminal chorionic villi and decidualized tissue consistent with ectopic . AM:disha 08/16/2023 MICROSCOPIC DESCRIPTION Slides are reviewed. GROSS DESCRIPTION Received in fixative is one container labeled with the patient's name and designated bilateral fallopian tubes and ectopic . The specimen consists of bilateral fallopian tubes including fimbrial ends. The fallopian tubes are not identified as right or left. One of the fallopian tubes measures 5.5 cm in length and 0.6 cm in diameter. Sections of this fallopian tube reveal unremarkable cut surfaces. The second fallopian tube shows the focal area of rupture with blood clots and it measures 5.5 cm in length and 1.5 cm in diameter. Sections of this fallopian tube reveal it is filled with blood clots. No obvious tissue is identified. [employer] sections are submitted in five cassettes as follows: 1 - unremarkable fallopian tube, 2-5 - second fallopian tube with rupture (possible ectopic ). The second fallopian tube with possible ectopic is submitted in entirety. / SJ:disha 08/15/2023 TC:5 [facility]: [id number] x2
[2023-08-15 09:21] LABS: Atypical Lymphocyte 1+ %
[2023-08-15 09:23] LABS: Anisocytosis 1+
--- NOTE | 2023-08-15 09:56 | PCM.OPRPT ---
Report of Operation Date of Procedure: 08/15/23 Pre-Operative Diagnosis: Ruptured ectopic , Hemoperitoneum, Pelvic pain in female, H/o Tubal ligation 14 yrs ago. Post-Operative Diagnosis: same, right fallopian tube Surgery/Procedure Performed:: Laparoscopic Bilateral salpingectomy, removal ectopic (right fallopian tube), evacuation of hemoperitoneum Description of Surgical Findings:: approximately 50cc blood in pelvis, right fallopian tube ectopic appreciated. Pt had Tubal ligation 14 yrs ago - salpingectomy performed today. Surgeon: Kelly Meehan chart clerk: Nathan Payan Type of Anesthesia: General and Local Special Medications: 0.5% marcaine Specimen's removed: Bilateral fallopian tubes- right fallopian tube with ectopic Drains: none Estimated Blood Loss (mL): 5cc Fluids Replaced: 700cc Description of Procedure: After informed consent was obtained patient was taken to the operating room she was placed in supine position she was given anesthesia. She was then placed in the [facility] and she was prepped and draped in normal sterile fashion. Bladder was drained prior to the start of procedure. At this time attention was turned to the vaginal portion where weighted speculum placed at posterior fornix vagina single-tooth tenaculum was used to gently grasp the internal the cervix. Internal os stenotic - [place] manipulator placed. Legs then placed in parallel with the abdomen the tenaculum and the weighted speculum were removed. 2 towel clamps were placed at level of umbilicus. Marcaine was injected infraumbilical and a small incision was made. The 5 mm trocar was placed under direct visualization. CO2 gas was used to insufflate the intra-abdominal cavity. Upon inspection hemoperitoneum noted- right fallopian tube ectopic noted- the uterus and ovaries appeared to be normal. At this time then the LLQ and RLQ ports were placed First Marcaine was injected and small incision was made a knife and the 5 mm trocars were placed. At this time then tubes were traced back to the fimbriated ends. Ligasure was used to coagulate and ligate along mesosalpynx bilaterally until tubes removed completely. Good hemostasis was appreciated. At this time procedure was deemed complete successful. The right tube with ectopic was placed in endocatch bag- and removed through 5mm umbilical port. The gas was desufflated on from the intra-abdominal cavity. The trochars were removed. Skin was closed using 4-0 Monocryl in a subcutaneous fashion. Dermabond glue was placed. Instrument lap and needle counts were correct ?2. The uterine manipulator was removed. Vaginal sweep was performed it was negative. There were no complications anticipated normal postoperative course for this patient. Procedure Start Time: 09:37 Procedure Stop Time: 09:59 Complications none Admit VTE Documentation VTE Present on Admission: Yes VTE Mechan Device Prophylaxis: SCD's VTE Pharm Prophylaxis ordered?: No Reason prophylaxis not ordered:: Procedure Not Indicated
[2023-08-15 10:00] LABS: ALB/GLOB Ratio 0.8 RATIO (0.9-2.4); AST(SGOT) 24 U/L (15-37); Alanine Aminotransfer ALT/SGPT 20 U/L (13-56); Albumin, Serum 3.2 g/dL (3.2-5.0); Alkaline Phosphatase 47 U/L (45-117); Anion Gap 5 (5-15); BUN 6 mg/dL (7-18); BUN/Creat Ratio 6.6 RATIO (10-20); Calcium,Total 7.7 mg/dL (8.5-10.1); Chloride 111 mmol/L (98-107); Creatinine, Serum 0.91 mg/dL (0.55-1.02); EST Glomerular Filtration Rate 75 mL/min (>60); Est Glom Filt Rate - Afr Amer 91 mL/min (>60); Estimated Creatinine Clearance 83.99 ml/min; Globulin 3.8 g/dL (2.2-4.2); Glucose 88 mg/dL (74-106); Potassium 3.2 mmol/L (3.5-5.1); Sodium Level 140 mmol/L (136-145); T4 Free Direct 0.29 ng/dL (0.76-1.46)
--- NOTE | 2023-08-15 10:04 | DCINST_ITS ---
Discharge Instructions Diet Discharge Diet: No restrictions Activity Discharge Activity: May Shower May resume sexual activity in: 2 weeks Weight Bearing Status: Weight bearing as tolerated Lifting Restrictions: 20-25 lbs Dressing / Incision Call your doctor if your incision/area has: Continuous Slow Oozing, Sudden Increased Bleeding, Increased Pain/ Swelling, Increased Redness, Foul Smelling Discharge and Swelling at the incision site Call your doctor if you observe: Fever of 101 or Higher, Using more than 1 pad per hour and Uncontrolled pain Additional Dressing/Incision Instructions:: You have skin glue over your incision sites, do not pick off. You may shower and let the soap and water run over the incision sites and dab dry. Follow Up Care Please Follow Up With: Narcisa Vargas MD When: 1-2 weeks post OP if you need an appointment please call [phone] Test Results: Test results from this visit will be discussed in further detail at your follow- up appointment, if applicable. Discharge Plan Admission Admit Date/Time: 08/14/23 20:51 Primary Reason for Your Visit: Positive test Attending Provider: Narcisa Vargas Primary Care Provider: Care Kinza Pineda Primary Discharge Orders/Prescriptions Prescriptions: No Action lisinopril 10 mg tablet 10 mg PO DAILY Patient Comments: take 1 tablet by mouth once daily; not taking because of insurance buspirone 10 mg tablet 10 mg PO DAILY Patient Comments: take 1 tablet by mouth IN THE MORNING and at bedtime; not taking because of insurance Referrals / Follow Up: Care Physician,Kinza Primary [Primary Care Provider] - Disposition Disposition (needs filled in before D/C Order can be placed): Home, Self Care
[2023-08-15] MEDS: Bupivacaine Mpf 0.5% 30 ML VIAL (10:07)
[2023-08-15] MEDS: 0.9% Saline Lock 10 ML Syringe IV (11:21)
[2023-08-15] MEDS: Oxycodone/Apap 5/325 Tablet PO (12:26)
--- NOTE | 2023-08-15 12:28 | CASEMGMT ---
RN CM in to see pt to discuss follow up. Pt does not have a PCP. Provided pt with a brochure for local providers. Pt reports she does not have insurance. Pt reports she was on Medicaid but was removed because she makes too much money. Pt reports her employer provides coverage but it is not good coverage. Discussed the marketplace as an option. SW notified and will follow up. Lillian Alex MSN, RN, CCM
--- NOTE | 2023-08-15 15:23 | CASEMGMT ---
Social Work SW met with pt and introduced self and role of SW. Pt is listed as self pay. SW spoke with pt regarding finances. Pt confirms that she did have Medicaid but was cut from services when income increased. Pt does have insurance option through her employer but she states this is not a good option. Pt states financial situation has changed since Medicaid was stopped. SW sent email to [employer] requesting they reach out to pt to screen for Medicaid eligibility. Pt is ready for discharge and requested [employer] call her. Phone number provided to [employer]. SW provided pt with written information on [facility], [facility] financial assistance application, prescription assistance information, [employer] and [employer] WHIRE information and WHIRE card. Pt accepting of information. SW spoke with pt regarding reason for hospitalization. Pt able to speak with SW regarding miscarriage. SW provided emotional support and gave pt a Forget me Not box with written information and supportive items. Pt appreciative and expressing no other needs at this time. MISHA Kelsey
== END 2023-08-15 15:26 | disposition home or self-care (01) ==
LOC: ED 20:23 → MS3 21:20
PROVIDERS: Obstetrics & Gynecology; Admitting Provider Obstetrics & Gynecology; Emergency Provider Emergency Medicine; Visit Provider Obstetrics & Gynecology
PROC: 10T24ZZ Resection of Products of Conception, Ectopic, Percutaneous Endoscopic Approach (ICD-10-PCS; CPT 59150; principal; 2023-08-15 08:45)
DX: O00.101 Right tubal pregnancy without intrauterine pregnancy (principal); F43.10 Post-traumatic stress disorder, unspecified; Z86.16 Personal history of COVID-19; I10 Essential (primary) hypertension; Z98.51 Tubal ligation status; E03.9 Hypothyroidism, unspecified; Z79.899 Other long term (current) drug therapy; Z79.890 Hormone replacement therapy; J45.909 Unspecified asthma, uncomplicated; F41.9 Anxiety disorder, unspecified; F17.210 Nicotine dependence, cigarettes, uncomplicated
CPT/HCPCS: 59151; 58700; 00840; 36415; 76817; 80048; 80053; 84439; 84443; 84702; 85025; 86900; 86901; 88305; 96360; 96361; 99221; 99284; 99406; J7030; J7120; A4216; G0378; J2405

== ENCOUNTER 2024-03-14 14:46 | Emergency (ER) | payer SELFPAY ==
[2024-03-14 14:46] VITALS: BP 123/91; PULSE 94; RESP 18; TEMP 36.6; O2SAT 97; BMI 31.6
--- NOTE | 2024-03-14 15:11 | EDS_ITS ---
HPI History of Present Illness Chief Complaint: Dizziness Informant: patient Narrative Narrative: 33-year-old female having episodes of dizziness today that lasted few minutes at a time. She had maybe 3 episodes. She states the first 1 felt like things were spinning and she was off-balance when trying to ambulate, and then the other 2 felt like she was lightheaded and light-bodied. She also felt a hearing disturbance in her ears during this period she remembers her vision being blurry but there is no visual field loss or diplopia, when the symptoms resolved her vision went back to normal. No associated dyspnea, chest discomfort, palpitations or other prodromal symptoms for any of these episodes. She states they seem to random she was standing both times it happened at work and then while she was on her way into the ER she had a third episode, she did not remember having a position change or turning her head to trigger the symptoms that she can recall, but she states it felt similar to when she felt like she might pass out another time. No known history of vertigo. No recent URIs. She denies having an earache. She denies any headaches today. No associated peripheral neurologic symptoms such as numbness, tingling, weakness in an arm or leg. No recent illness of any sort. The only medication change she has had recently was an increase in her lisinopril about 3 weeks ago because her systolic blood pressures were high, she states she has felt like she has been tolerating that just fine. She states she has no reason to be dehydrated today. She has a remote history of thyroid cancer had her thyroid removed, she had a bilateral salpingectomy in the past as well. [facility] Medical History Wears glasses Cancer PTSD (post-traumatic stress disorder) Marijuana use Thyroid disease Low iron Easy bruising Restless legs Smoker Cubital tunnel syndrome on left Hypoparathyroidism after surgical removal of thyroid gland COVID-19 Anxiety Hypothyroid HTN (hypertension) Depression Asthma Home Medications ?Medication ?Instructions ?Recorded ?Last Taken ?Type lisinopril 10 mg tablet 10 mg PO DAILY 03/23/22 01/24/23 History buspirone 10 mg tablet 10 mg PO DAILY 06/07/22 Unknown History meclizine 25 mg tablet 25 mg PO Q8H PRN PRN Dizziness #20 03/14/24 Unknown Rx tabs Allergy/AdvReac Type Severity Reaction Status Date / Time hydromorphone (From Dilaudid) Allergy Hives Verified 03/14/24 14:49 latex Allergy Hives Verified 03/14/24 14:49 soap Allergy Hives Verified 03/14/24 14:49 Family History no significant family his Surgical History H/O elbow surgery History of tubal ligation (~2009) History of carpal tunnel surgery of right wrist History of carpal tunnel surgery of left wrist Social History Smoking Status: Current every day smoker tobacco type: cigarettes alcohol intake: never ROS ROS ED Constitutional Constitutional ED: Denies chills or fever(s) Eyes Eyes: Reports blurry vision bilateral (only w/ episodes of dizziness); Denies diplopia ENT ENT ED: Reports disequillibrium, dizziness and other Details: change in hearing w/ episodes ; Denies ear discharge, ear pain, rhinorrhea or sore throat Cardiovascular Cardiovascular: Denies chest pain or palpitations Respiratory/Chest Respiratory/Chest: Denies cough or dyspnea Gastrointestinal Gastrointestinal: Denies abdominal pain, diarrhea, nausea or vomiting Genitourinary Genitourinary ED: Denies dysuria or hematuria Musculoskeletal Musculoskeletal: Denies back pain or neck pain Integumentary Denies abscess or rash Neurologic Neurologic: Denies headache(s), paresthesias or weakness Psychiatric Psychiatric: Denies suicidal thoughts EXAM Physical Exam Const Vital Signs: 03/14/24 14:46 03/14/24 16:46 Temperature 97.8 F Temperature Source Oral Pulse Rate 94 48 L Respiratory Rate 18 12 Blood Pressure 123/91 H 88/69 L Blood Pressure Mean 101 75 Pulse Ox 97 95 Oxygen Delivery Method Room Air Room Air Positive well nourished and well developed General Appearance ED: well developed and NAD HEENT Reports TM's clear and moist mucous membranes normocephalic and atraumatic Tympanic Membrane ED: Yes TM's clear Eyes PERRL and EOMs intact bilaterally Eyes Narrative: No vertical or rotatory or nonfatigable nystagmus. Neck full ROM and supple Resp normal respiratory effort and clear to auscultation bilaterally Cardio regular rate, regular rhythm and no murmurs Rate: Negative for tachycardic GI non-tender and non-distended Auscultation: normoactive bowel sounds Palpation: soft Back/Spine no CVA tenderness General Back: other FROM Extremity normal to inspection General Extremety ED: Negative for edema, pulses abnormal or tenderness General Extremity: Negative for edema or pulses abnormal Neuro oriented x3, CN's II-XII intact bilaterally and no sensory deficits noted Neuro Narrative: Normal [id number] and [id number]-[id number] bilaterally. Positive Stuart-Hallpike to the left, reproducing patient's symptoms, and making her feel light-bodied and no reproduced symptoms of any type with performing same maneuver to the right. Sensorium / Orientation: awake and alert Motor Exam: strength 5/5 throughout Psych mental status grossly normal Skin no rashes or lesions noted and no wounds MDM MDM MDM Narrative Medical decision making narrative: Given patient's symptoms, normal vital signs, lack of tachycardia when she is feeling dizzy, and positive Tevin-Hallpike to 1 side but not the other, this is much more likely to be peripheral vertigo rather than lack of blood flow to the brain/near syncope. Given her history, I think reasonable to obtain basic labs, her watching her on the monitor her vital signs are normal including pulse oximetry 97%, she is 33 years old and has a PERC score of 0 I do not think she needs to be worked up for PE here. She is given meclizine while we were running labs. After where she felt a lot better even with position changes. Her pressure was noted to be 91 systolic and her pulse in the 40s. She is asymptomatic with this. I had nursing do orthostatics, her pulse went up 20 points and she was asymptomatic, otherwise basically orthostatics negative. Patient stable for discharge with a prescription for meclizine and advised to follow-up if she continues to have symptoms. Lab Data Attestation: I reviewed the patient's lab results. Labs: Laboratory Results - last 24 hr 03/14/24 15:05 WBC 6.7 RBC 3.15 L Hgb 9.2 L Hct 28.4 L MCV 90.2 MCH 29.2 MCHC 32.4 RDW Std Deviation 53.2 H RDW Coeff of Acacia 16.2 H Plt Count 297 MPV 9.4 Immature Gran % (Auto) 0.400 Neut % (Auto) 48.1 Lymph % (Auto) 41.0 Guadalupe % (Auto) 7.4 Eos % (Auto) 2.2 Baso % (Auto) 0.9 Absolute Neuts (auto) 3.2 Absolute Lymphs (auto) 2.76 Nucleated RBC % 0 Sodium 135 L Potassium 3.8 Chloride 101 Carbon Dioxide 29.0 Anion Gap 5 BUN 14 Creatinine 1.33 H Estim Creat Clear Calc 57.27 Est GFR (MDRD) Af Amer 58 L Est GFR (MDRD) Non-Af 48 L BUN/Creatinine Ratio 10.5 Glucose 99 Calcium 8.9 Discharge Plan Triage Chief Complaint: Dizziness ED Provider: Luiz Wilde Dx/Rx/DC Orders Clinical Impression: Peripheral vertigo involving left ear Instructions: Inner Ear Balance, ED Vertigo, Unspecified Prescriptions: New meclizine 25 mg tablet 25 mg PO Q8H PRN PRN (Reason: Dizziness) Qty: 20 0RF No Action lisinopril 10 mg tablet 10 mg PO DAILY Patient Comments: take 1 tablet by mouth once daily; not taking because of insurance buspirone 10 mg tablet 10 mg PO DAILY Patient Comments: take 1 tablet by mouth IN THE MORNING and at bedtime; not taking because of insurance [facility] Referrals: Bryce Bertrand MD [Med Staff - Active Staff] - 1 Week if not improving Print Language: Lithuanian Disposition Disposition: Home, Self Care
[2024-03-14] MEDS: Meclizine HCl 25 MG Tablet PO (15:14)
[2024-03-14 15:21] LABS: Absolute Lymphocyte Count 2.76 X10^3/uL (0.83-4.51); Absolute Neutrophil Count 3.2 X10^3/uL (2.0-7.7); Basophil# 0.06 X10^3/uL; Basophil% 0.9 % (0-1); Eosinophil# 0.15 X10^3/uL; Eosinophils% 2.2 % (0-5); Hematocrit 28.4 % (37-47); Hemoglobin 9.2 g/dL (12.0-15.0); Lymphocyte # 2.76 X10^3/ul (0.83-4.51); Mean Corp Hgb Conc 32.4 g/dL (32-36); Mean Corpuscular Hgb 29.2 pg (27.0-32.0); Mean Corpuscular Volume 90.2 fL (81-99); Mean Platelet Vol. 9.4 fl (6.2-12.0); Monocyte% 7.4 % (0-10); NRBC Flagged by Analyzer 0 % (0-5); Neutrophil # 3.23 X10^3/uL (2.7-7.7); Neutrophil % 48.1 % (47-70); Platelet Count 297 K/mm3 (150-450); RBC Distribution Width CV 16.2 % (11.6-14.6); RBC Distribution Width SD 53.2 fl (35.1-43.9); Red Blood Count 3.15 M/mm3 (4.2-5.4); White Blood Count 6.7 K/mm3 (4.4-11.0)
[2024-03-14 15:33] LABS: Anion Gap 5 (5-15); BUN 14 mg/dL (7-18); BUN/Creat Ratio 10.5 RATIO (10-20); Calcium,Total 8.9 mg/dL (8.5-10.1); Chloride 101 mmol/L (98-107); Creatinine, Serum 1.33 mg/dL (0.55-1.02); EST Glomerular Filtration Rate 48 mL/min (>60); Est Glom Filt Rate - Afr Amer 58 mL/min (>60); Estimated Creatinine Clearance 57.27 ml/min; Glucose 99 mg/dL (74-106); Potassium 3.8 mmol/L (3.5-5.1); Sodium Level 135 mmol/L (136-145)
[2024-03-14 16:46] VITALS: BP 88/69; PULSE 48; RESP 12; O2SAT 95
[2024-03-14 17:11] VITALS: BP 88/59; BP 96/68; BP 96/70; PULSE 46; PULSE 49; PULSE 69
[2024-03-14 17:17] VITALS: BP 96/70; PULSE 55; RESP 16; TEMP 37.1; O2SAT 95
== END 2024-03-14 17:21 | disposition home or self-care (01) ==
PROVIDERS: Emergency Provider Emergency Medicine; Visit Provider Emergency Medicine
DX: H81.392 Other peripheral vertigo, left ear (principal); I10 Essential (primary) hypertension; Z98.51 Tubal ligation status; F17.210 Nicotine dependence, cigarettes, uncomplicated; Z86.16 Personal history of COVID-19
CPT/HCPCS: 80048; 85025; 99284

== ENCOUNTER 2024-12-22 07:55 | Emergency (ER) | payer SELFPAY ==
[2024-12-22 07:56] VITALS: BP 151/101; PULSE 86; RESP 16; TEMP 36.4; O2SAT 98; BMI 30.9
--- NOTE | 2024-12-22 08:15 | EKG12_ITS ---
Test Reason : SYNCOPE Blood Pressure : */* mmHG Vent. Rate : 70 BPM Atrial Rate : 70 BPM P-R Int : 128 ms QRS Dur : 78 ms QT Int : 400 ms P-R-T Axes : 54 42 61 degrees QTcB Int : 432 ms Sinus rhythm with marked sinus arrhythmia Low voltage QRS Nonspecific T wave abnormality Abnormal ECG Confirmed by WILBER BARLOW, MAEVE ([id number]), editor producer SANDRO MOURA ([id number]) on 12/23/2024 1:37:03 PM Referred By: ROBERTA Confirmed By: MAEVE MERINO MD
--- NOTE | 2024-12-22 08:49 | EDS_ITS ---
HPI History of Present Illness Chief Complaint: [facility]yncope 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 COVID-19 Anxiety Hypothyroid HTN (hypertension) Depression Asthma Home Medications ?Medication ?Instructions ?Recorded ?Last Taken ?Type lisinopril 10 mg tablet 10 mg PO DAILY 03/23/22 08/0 08/17 History buspirone 10 mg tablet 10 mg PO DAILY 06/07/22 Unkn own History meclizine 25 mg tablet 25 mg PO Q8H PRN PRN Dizzine ss #20 03/14/24 Unknown Rx tabs escitalopram oxalate 10 mg tablet 10 mg PO DAILY 12/22 Unknown History levothyroxine 50 mcg tablet 50 mcg PO 12/22/24 Unknown History Allergy/AdvReac Type Severity Reaction Status Date / Time hydromorphone (From Dilaudid) Allergy Hives Verified 12/22/24 07:56 latex Allergy Hives Verified 12/22/24 07:56 soap Allergy Hives Verified 12/22/24 07:56 Surgical History H/O elbow surgery History of tubal ligation (~2009) History of carpal tunnel surgery of right wrist History of carpal tunnel surgery of left wrist Social History Smoking Status: Current every day smoker tobacco type: cigarettes alcohol intake: never EXAM Physical Exam Const Vital Signs: 12/22/24 07:56 12/22/24 08:02 12/22/24 10:04 Temperature 97.6 F L Temperature Source Temporal Pulse Rate 86 Respiratory Rate 16 Respiratory Effort Normal Respiratory Pattern Normal Blood Pressure 151/101 H Blood Pressure Mean 117 Pulse Ox 98 Oxygen Delivery Method Room Air Room Air 12/22/24 10:04 12/22/24 12:35 12/22/24 13:07 Temperature 98.9 F Temperature Source Pulse Rate 53 L 49 L 53 L Respiratory Rate 15 16 16 Respiratory Effort Respiratory Pattern Blood Pressure 113/71 109/77 Blood Pressure Mean 85 87 Pulse Ox 100 100 98 Oxygen Delivery Method MDM MDM MDM Narrative Medical decision making narrative: HISTORY OF PRESENT ILLNESS: Chief complaint: Syncope 34-year-old female history of syncope, bipolar disorder, hypothyroidism, hypertension presents with diffuse numbness all over her body. She notes he had a syncopal episode. She notes a history of similar. No prodromal headache, abdominal pain, vomiting, chest pain or palpitations. The patient denies recent surgery in the last 4 weeks or immobilization in the last 3 days, denies previous diagnosis of DVT or PE, hemoptysis, unilateral leg swelling or malignancy with treatment the last 6 months or palliative. No estrogen use noted. Patient denies sudden onset of pain, no tearing sensation, no migratory symptoms, no new numbness, weakness or loss of sensation. Patient denies family history or personal history of Connective tissue disorders (Marfan's Syndrome, Nara Danlos etc) patient denies sudden onset or thunderclap headache, denies maximal intensity within 1 minute, vomiting, neck pain, stiffness, changes in vision, fever, history malignancy, syncope, or seizures associated with headache. REVIEW OF SYSTEMS: Pertinent positives: Syncope, paresthesia Pertinent negatives: As per HPI PHYSICAL EXAM: Nursing triage notes reviewed, Vital signs reviewed Constitutional: please see mdm HENT: MMM Eyes: Pupils equal round and reactive to light, Extraocular muscles intact Neck: No stridor, no JVD, full neck ROM Lungs: Clear to auscultation, No wheezing or rales. No increased work of breathing, no conversational dyspnea, no accessory muscle use, no nasal flaring. No respiratory distress noted Heart: Regular rate and rhythm, No murmurs, No rubs and No gallops, 2+ distal pulses (radial, femoral, posterior tibial) in all extremities Abdomen: Soft, there is no tenderness, rigidity, rebound or guarding, no obvious peritoneal signs, no palpable pulsatile abdominal masses, no auscultated abdominal bruit : No CVAT Extremities: No edema Neuro: Alert and oriented x3, neuro exam at baseline, cranial nerves II through XII are intact. No pain with extraocular muscle movement. There is negative test of skew. 5 of 5 strength in upper and lower extremities in flexion extension. Intact sensation to light touch in upper and lower extremity dermatomes. No truncal or extremity ataxia. No dysdiadochokinesia. Normal gait. 2+ reflexes in upper and lower extremities. No meningeal signs. N egative Babinski. NIH of 0. Skin: No rash or lesions noted MEDICAL DECISION MAKING: Chief Complaint: please see HPI External records reviewed: Reviewed prior ED visit, reviewed cardiology evaluati ons Factors affecting care: As per HPI Social determinants of health: none History obtained from others: none Consults: none [facility] Narrative: The patient was initially hypertensive with a blood pressure 151/101 otherwise afebrile and nontoxic-appearing. Exam I considered the following differential diagnosis: Arrhythmia, anemia, electrolyte disturbance, anemia, thyroid dysfunction ICH, ectopic , PE, AAA While I considered pulmonary embolism, aortic dissection and AAA the patient no history of physical exam findings to suggest these emergent diagnoses. As such no specific testing for these etiologies is indicated at this time. I obtained a lab and imaging workup to further determine if the patient was suffering from a life-threatening etiology. Initial resuscitation with 1 L normal saline ALL IMAGES (IF OBTAINED) HAVE BEEN PERSONALLY REVIEWED AND INTERPRETED BY MYSELF. EKG with normal sinus rhythm rate of 70, normal axis, normal intervals, no STEMI, no ARVD, no WPW, no signs of Brugada syndrome, no signs of right heart strain CBC with no leukocytosis, no improved anemia, new thrombocytopenia High-sensitivity troponin is negative, no evidence of myocardial ischemia Awaiting delta troponin I have personally reviewed the patient's chest x-ray. Chest x-ray is unremarkable for pulmonary edema, pneumothorax, pneumonia or focal cardiopulmonary abnormality. Delta troponin is also negative No clear life-limiting etiology could be identified during ED evaluation Upon reevaluation patient blood pressure improved to 113/71. Repeat cardiopulmonary exam remained benign. Patient is appropriate for discharge home The patient and/or family, caregivers express understanding. The patient and/or family, caregivers agrees with the plan. Shared decision making: I will have a discussion with the patient and or visitors regarding risk/benefits of further testing or admission. They will be made aware of of the risk/benefits inherent in this decision they will be given the opportunity to voice understanding. Total critical care time today provided was at least 0 minutes. This excludes separately billable procedures. Critical care time (if documented) is secondary to the patient having high probability of clinically significant/life threatening deterioration in the patient's condition which required my urgent intervention. Impression: 1. Syncope 2. Near syncope 3. Chronic anemia Dispo: discharge This note was generated with Dragon dictation software. It may contain incorrect words, spelling, and punctuation that were not noted in review of the chart prior to signing. Lab Data Labs: Laboratory Results - last 24 hr 12/22/24 12/22/24 10:00 11:50 WBC 5.3 RBC 3.88 L Hgb 10.4 L Hct 32.6 L MCV 84.0 MCH 26.8 L MCHC 31.9 L RDW Std Deviation 54.4 H RDW Coeff of Acacia 18.0 H Plt Count 329 MPV 9.2 Immature Gran % (Auto) 0.200 Neut % (Auto) 56.6 Lymph % (Auto) 26.6 Spencer % (Auto) 12.0 H Eos % (Auto) 4.0 Baso % (Auto) 0.6 Absolute Neuts (auto) 3.0 Absolute Lymphs (auto) 1.40 Nucleated RBC % 0 Sodium 137 Potassium 4.2 Chloride 104 Carbon Dioxide 24.2 Anion Gap 10 BUN 10 Creatinine 0.86 Estim Creat Clear Calc 86.77 Est GFR (MDRD) Non-Af 89 BUN/Creatinine Ratio 11.6 Glucose 91 Calcium 9.0 Troponin T High Sens < 6 Troponin T Hi Sens 2 Hr < 6 Radiography Diagnostic Testing: Clinical Impression(s) from Imaging Studies Chest X-Ray 12/22/24 10:11 IMPRESSION: Lungs are hypoinflated, but appear clear. No pleural effusion or pneumothorax is noted. The cardiomediastinal silhouette is within the normal range, and unchanged. No interval osseous change is noted. Negative examination. Reading Location: [place] [id number] Discharge Plan Triage Chief Complaint: Syncope ED Provider: Nathaniel Godfrey Dx/Rx/DC Orders Clinical Impression: Syncope Instructions: ED Near-Fainting, Uncertain Cause Prescriptions: No Action lisinopril 10 mg tablet 10 mg PO DAILY Patient Comments: take 1 tablet by mouth once daily; not taking because of insurance buspirone 10 mg tablet 10 mg PO DAILY Patient Comments: take 1 tablet by mouth IN THE MORNING and at bedtime; not taking because of insurance meclizine 25 mg tablet 25 mg PO Q8H PRN PRN (Reason: Dizziness) Qty: 20 0RF levothyroxine 50 mcg tablet 50 mcg PO escitalopram oxalate 10 mg tablet 10 mg PO DAILY Primary Care Provider: Melissa Mena Referrals: [facility] [Non-Staff] - Activity Restrictions/Additional Instructions: Thank you for trusting us with your care today! Your labs images are reassuring. Please drink plenty of fluids. Please follow your primary care physician for further outpatient testing. Please take Tylenol (2 pills, 650 mg), ibuprofen (2 pills, 400 mg) every 6 hours as needed for pain and fever control. Please return to the emergency department if your symptoms change or worsen. Please follow with your primary care physician for further outpatient evaluation and management. Print Language: Macedonian Disposition Disposition: Home, Self Care Discharge Date/Time: 12/22/24 13:08
[2024-12-22 10:04] VITALS: BP 113/71; PULSE 53; RESP 15; O2SAT 100
[2024-12-22 10:07] LABS: Basophil# 0.03 X10^3/uL; Basophil% 0.6 % (0-1); Eosinophil# 0.21 X10^3/uL; Hematocrit 32.6 % (37-47); Hemoglobin 10.4 g/dL (12.0-15.0); Lymphocyte % 26.6 % (19-41); Mean Corp Hgb Conc 31.9 g/dL (32-36); Mean Corpuscular Hgb 26.8 pg (27.0-32.0); Mean Platelet Vol. 9.2 fl (6.2-12.0); Monocyte# 0.63 X10^3/uL; NRBC Flagged by Analyzer 0 % (0-5); Neutrophil # 2.99 X10^3/uL (2.7-7.7); Neutrophil % 56.6 % (47-70); Platelet Count 329 K/mm3 (150-450); RBC Distribution Width SD 54.4 fl (35.1-43.9); Red Blood Count 3.88 M/mm3 (4.2-5.4); White Blood Count 5.3 K/mm3 (4.4-11.0)
[2024-12-22] MEDS: 0.9% Normal Saline (1000mL) 1,000 ML 999 ML IV (10:09)
--- NOTE | 2024-12-22 10:11 | RAD_ITS ---
PROCEDURE: CHEST 1 VIEW (PORTABLE) 12/22/2024 REASON FOR EXAM: CHEST PAIN TECHNIQUE: Frontal view of the chest. COMPARISON: AP chest of 06/07/2022. RAD/Chest 1 View (Portable) IMPRESSION: Lungs are hypoinflated, but appear clear. No pleural effusion or pneumothorax is noted. The cardiomediastinal silhouette is within the normal range, and unchanged. No interval osseous change is noted. Negative examination. Reading Location: [place] [id number]
[2024-12-22 10:43] LABS: Anion Gap 10 (5-15); BUN 10 mg/dL (4-19); BUN/Creat Ratio 11.6 RATIO (10-20); Carbon Dioxide 24.2 mmol/L (21.0-32.0); Chloride 104 mmol/L (98-108); Creatinine, Serum 0.86 mg/dL (0.70-1.20); EST Glomerular Filtration Rate 89 (>60); Estimated Creatinine Clearance 86.77 ml/min (50-250); Glucose 91 mg/dL (70-99); Potassium 4.2 mmol/L (3.3-5.1); Sodium Level 137 mmol/L (133-145)
[2024-12-22 10:48] LABS: Troponin T High Sensitivity < 6 ng/L (<=14)
[2024-12-22 12:35] VITALS: PULSE 49; RESP 16; O2SAT 100
[2024-12-22 12:39] LABS: Troponin T High Sens 2 HR < 6 ng/L (<=14)
[2024-12-22 13:07] VITALS: BP 109/77; PULSE 53; RESP 16; TEMP 37.2; O2SAT 98
== END 2024-12-22 13:08 | disposition home or self-care (01) ==
PROVIDERS: Emergency Provider Emergency Medicine; PCP Nurse Practitioner Family; Visit Provider Emergency Medicine
DX: R55 Syncope and collapse (principal); F31.9 Bipolar disorder, unspecified; I10 Essential (primary) hypertension; D64.9 Anemia, unspecified; Z86.16 Personal history of COVID-19; E03.9 Hypothyroidism, unspecified; F17.210 Nicotine dependence, cigarettes, uncomplicated; Z98.51 Tubal ligation status
CPT/HCPCS: 71045; 80048; 84484; 85025; 93005; 96360; 96361; 99283; A4216